=== PATIENT | female | born 1965 | race Caucasian/White ===

== ENCOUNTER 2017-03-01 14:07 | Emergency (ER) | payer SELFPAY | END 2017-03-01 14:20 | disposition left against medical advice (07) | LOC: ER 14:07 | DX: Z53.9 Procedure and treatment not carried out, unspecified reason (principal); M54.9 Dorsalgia, unspecified ==

== ENCOUNTER 2017-03-28 09:03 | Emergency (ER) | payer SELFPAY ==
[2017-03-28] MEDS ORDERED: HYDROCODONE/ACETAMINOPHEN 5-325 MG TABLET PO ONE (09:56)
--- NOTE | 2017-03-28 09:57 | ER Document Report ---
ED Medical Screen (RME) - General Chief Complaint: Vaginal Pain Stated Complaint: VAGINAL PAIN/BACK PAIN Time Seen by Provider: 03/28/17 09:55 Notes: Patient reports severe vaginal pain for the last 2-3 days. She states she is also been spotting for the first time in 2-3 years. She states intercourse been painful. She has some nausea but no vomiting. She states she also feels that her bladder "has fallen out". TRAVEL OUTSIDE OF THE [place] IN LAST 30 DAYS: No - Related Data Allergies/Adverse Reactions: gabapentin Allergy (Verified 03/28/17 09:31) Difficulty breathing ketorolac [From Toradol] Allergy (Verified 03/28/17 09:31) rash tramadol Allergy (Verified 03/28/17 09:31) Past Medical History - Social History Frequency of alcohol use: None Drug Abuse: None Renal/ Medical History: Denies: Hx Peritoneal Dialysis Physical Exam - Vital signs Vitals: Temp Pulse Resp BP Pulse Ox 97.7 F 76 18 160/97 H 96 03/28/17 09:30 03/28/17 09:30 03/28/17 09:30 03/28/17 09:30 03/28/17 09:30 Course - Vital Signs Vital signs: Temp Pulse Resp BP Pulse Ox 97.7 F 76 18 160/97 H 96 03/28/17 09:30 03/28/17 09:30 03/28/17 09:30 03/28/17 09:30 03/28/17 09:30
[2017-03-28 10:24] LABS: ABSOLUTE EOSINOPHILS # (AUTO) 0.1 10^3/uL (0.0-0.6); ABSOLUTE LYMPHOCYTES (AUTO) 1.6 10^3/uL (0.5-4.7); ABSOLUTE MONOCYTES (AUTO) 0.4 10^3/uL (0.1-1.4); ABSOLUTE NEUT (AUTO) 3.9 10^3/uL (1.7-8.2); BASOPHILS % (AUTO) 0.4 % (0-2); EOSINOPHILS % (AUTO) 2.4 % (0-6); HEMATOCRIT 43.9 % (36.0-47.0); LYMPHOCYTES % (AUTO) 25.6 % (13-45); MEAN CORPUSCULAR HEMOGLOBIN 30.4 pg (27.0-33.4); MEAN CORPUSCULAR HGB CONC 34.3 g/dL (32.0-36.0); MEAN CORPUSCULAR VOLUME 89 fl (80-97); MONOCYTES % (AUTO) 7.3 % (3-13); PLATELET COUNT 214 10^3/uL (150-450); RED BLOOD COUNT 4.95 10^6/uL (3.72-5.28); RED CELL DISTRIBUTION WIDTH 12.6 % (11.5-14.0); SEGMENTED NEUTROPHILS % (AUTO) 64.3 % (42-78); TOTAL CELLS COUNTED % (AUTO) 100 %; WHITE BLOOD COUNT 6.1 10^3/uL (4.0-10.5)
[2017-03-28 10:30] LABS: APPEARANCE,URINE CLEAR; BILIRUBIN,URINE NEGATIVE (NEGATIVE); COLOR,URINE STRAW; GLUCOSE, URINE NEGATIVE (NEGATIVE); KETONES,URINE NEGATIVE (NEGATIVE); LEUKOCYTE ESTERASE,URINE NEGATIVE (NEGATIVE); NITRITE,URINE NEGATIVE (NEGATIVE); PROTEIN,URINE NEGATIVE (NEGATIVE); URINE SPECIFIC GRAVITY 1.004; UROBILINOGEN,URINE NEGATIVE mg/dL (<2.0)
--- NOTE | 2017-03-28 10:35 | ER Document Report ---
ED General - General Chief Complaint: Vaginal Pain Stated Complaint: VAGINAL PAIN/BACK PAIN Time Seen by Provider: 03/28/17 09:55 TRAVEL OUTSIDE OF THE [place] IN LAST 30 DAYS: No - Related Data Allergies/Adverse Reactions: gabapentin Allergy (Verified 03/28/17 09:31) Difficulty breathing ketorolac [From Toradol] Allergy (Verified 03/28/17 09:31) rash tramadol Allergy (Verified 03/28/17 09:31) Past Medical History - Social History Smoking Status: Never Smoker Frequency of alcohol use: None Drug Abuse: None Family History: Reviewed & Not Pertinent Patient has suicidal ideation: No Patient has homicidal ideation: No Renal/ Medical History: Denies: Hx Peritoneal Dialysis Physical Exam - Vital signs Vitals: Temp Pulse Resp BP Pulse Ox 97.7 F 76 18 160/97 H 96 03/28/17 09:30 03/28/17 09:30 03/28/17 09:30 03/28/17 09:30 03/28/17 09:30 Course - Re-evaluation Re-evalutation: 03/28/17 12:57 Caroline female presents with vaginal pain, no discharge. Patient's extensive lab workup unremarkable, no leukocytosis or other abnormalities. Patient's transvaginal ultrasound also shows no acute findings. Patient's pelvic exam finds no obvious lesions. The patient does have appears to be a hematoma in the posterior wall of her vagina. Very tender to palpation. Patient scheduled to see her [facility] on Tuesday. This time she stable for discharge will give oral opioid therapy. Return if anything changes - Vital Signs Vital signs: Temp Pulse Resp BP Pulse Ox 97.7 F 76 18 160/97 H 96 03/28/17 09:30 03/28/17 09:30 03/28/17 09:30 03/28/17 09:30 03/28/17 09:30 - Laboratory Result Diagrams: 03/28/17 10:05 03/28/17 10:05 Laboratory results interpreted by me: 03/28/17 10:05 Calcium 10.5 H Discharge - Discharge Clinical Impression: Vaginal pain Condition: Stable Disposition: HOME, SELF-CARE Additional Instructions: See your [facility] [facility] on Tuesday, patient has a appointment already. Return if anything changes between now and then. Prescriptions: Oxycodone HCl [Oxycontin Ir 5 Mg Tablet] 1 - 2 mg PO Q4H PRN #15 tablet PRN Reason: For Pain
[2017-03-28 10:47] LABS: ALANINE AMINOTRANSFERASE 23 U/L (9-52); ALBUMIN 4.6 g/dL (3.5-5.0); ALKALINE PHOSPHATASE 76 U/L (38-126); ANION GAP 11 (5-19); ASPARTATE AMINO TRANSFERASE 17 U/L (14-36); BILIRUBIN,DIRECT 0.2 mg/dL (0.0-0.4); BILIRUBIN,TOTAL 0.4 mg/dL (0.2-1.3); BLOOD UREA NITROGEN 18 mg/dL (7-20); CALCIUM 10.5 mg/dL (8.4-10.2); CARBON DIOXIDE 27 mmol/L (22-30); CHLORIDE 104 mmol/L (98-107); GLUCOSE 100 mg/dL (75-110); POTASSIUM 4.9 mmol/L (3.6-5.0); SODIUM 141.6 mmol/L (137-145)
[2017-03-28] MEDS ORDERED: HYDROMORPHONE HCL INJ/PF 2 MG/ML AMPULE IM ONE ×2 (11:35→12:52)
--- NOTE | 2017-03-28 11:42 | RADIOLOGY REPORT (SQ) ---
EXAM DESCRIPTION: U/S NON-OB PELVIS TV W/O DOP COMPLETED DATE/TIME: 03/28/2017 11:32 am REASON FOR STUDY: severe pelvic pain COMPARISON: None. TECHNIQUE: Dynamic and static grayscale images acquired of the pelvis via transabdominal and transva ginal approach and recorded on PACS. Additional selected color Doppler and spectral images recorded. LIMITATIONS: Pelvic bowel gas, ovaries not visualized FINDINGS: UTERUS: Contour normal. No mass. Uterus is 7 x 5 x 4 cm in size. ENDOMETRIAL STRIPE: 6 to 7 mm in thickness CERVIX: Closed. Several small nabothian cysts. RIGHT OVARY: Not visualized RIGHT OVARY DOPPLER: Not performed LEFT OVARY: Not visualized LEFT OVARY DOPPLER: Not performed FREE FLUID: None noted. OTHER: No other significant finding. IMPRESSION: Ovaries not visualized either transabdominally or endovaginally. Normal size uterus without fibroids. Endometrial stripe within normal limits, patient is perimenopau lissette TECHNICAL DOCUMENTATION: JOB ID: [id number] All Rights Reserved
[2017-03-28 13:14] LABS: T.VAGINALIS (WET MOUNT) NO TRICHOMONAS SEEN; WBCS (WET MOUNT) NO WBCS SEEN; YEAST (WET MOUNT) NO YEAST SEEN
[2017-03-28 14:11] VITALS: BP 137/78
[2017-03-28 14:44] LABS: CHLAM PCR NOT DETECTED (NOT DETECT); GON PCR NOT DETECTED (NOT DETECT)
== END 2017-03-28 14:11 | disposition home or self-care (01) ==
LOC: ER 09:03
DX: R10.2 Pelvic and perineal pain (principal); Z88.6 Allergy status to analgesic agent
CPT/HCPCS: 99284; 96372; 36415; 87210; 85025; 80053; 81001; 87491; 87591; 76830; J1170

== ENCOUNTER 2017-05-15 10:40 | Emergency (ER) | payer MEDICAID ==
[2017-05-15] MEDS ORDERED: FENTANYL CITRATE INJ/PF 100 MCG/2 ML AMPUL IM ONE (11:11)
--- NOTE | 2017-05-15 11:16 | ER Document Report ---
ED Medical Screen (RME) - General Chief Complaint: Pelvic Pain Stated Complaint: PELVIC PAIN Notes: RME DISCLOSURE I have seen this patient as part of a Rapid Medical Evaluation and, if applicable, placed any initially appropriate orders. The patient will be seen and fully evaluated, including a full history and physical exam, by a provider ( in Main ED or Fast Track) when a room becomes available. 51F pmh urinary bladder prolapse here w c/o pelvic pain ongoing for past few days. She has been taking several percocets for the pain without much relief. She does not have any abd pain. She reports that "no one will do surgery on me because I have Medicaid". This feels similar to previous episodes of her bladder prolapsing which has been ongoing for the past 1-2 years. TRAVEL OUTSIDE OF THE [place] IN LAST 30 DAYS: No - Related Data Allergies/Adverse Reactions: gabapentin Allergy (Verified 03/28/17 09:31) Difficulty breathing ketorolac [From Toradol] Allergy (Verified 03/28/17 09:31) rash tramadol Allergy (Verified 03/28/17 09:31) Past Medical History Renal/ Medical History: Denies: Hx Peritoneal Dialysis Physical Exam - Vital signs Vitals: Temp Pulse Resp BP Pulse Ox 97.5 F 78 18 149/97 H 94 05/15/17 10:45 05/15/17 10:45 05/15/17 10:45 05/15/17 10:45 05/15/17 10:45 Course - Vital Signs Vital signs: Temp Pulse Resp BP Pulse Ox 97.5 F 78 18 149/97 H 94 05/15/17 10:45 05/15/17 10:45 05/15/17 10:45 05/15/17 10:45 05/15/17 10:45
--- NOTE | 2017-05-15 11:37 | ER Document Report ---
ED General - General Chief Complaint: Pelvic Pain Stated Complaint: PELVIC PAIN Time Seen by Provider: 05/15/17 11:19 Mode of Arrival: Ambulatory Information source: Patient Notes: This is a 51-year-old female with a history of a prolapsed bladder (currently followed by Dr. Atwood and referred to Dr. Lee for surgery) who presents to the emergency room with low vaginal/pelvic pain after lifting up boxes yesterday. 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 She appears in a lot of discomfort now. TRAVEL OUTSIDE OF THE [place] IN LAST 30 DAYS: No - HPI Onset: Just prior to arrival Onset/Duration: Sudden Quality of pain: No pain Severity: None Pain Level: Denies Associated symptoms: denies: Chest pain, Fever, Nausea, Vomiting, Shortness of breath Exacerbated by: Denies Relieved by: Denies Similar symptoms previously: Yes Recently seen / treated by doctor: Yes - Related Data Allergies/Adverse Reactions: gabapentin Allergy (Verified 03/28/17 09:31) Difficulty breathing ketorolac [From Toradol] Allergy (Verified 03/28/17 09:31) rash tramadol Allergy (Verified 03/28/17 09:31) Past Medical History - General Information source: Patient - Social History Smoking Status: Never Smoker Cigarette use (# per day): No Chew tobacco use (# tins/day): No Frequency of alcohol use: None Drug Abuse: None Lives with: Family Family History: Reviewed & Not Pertinent Patient has suicidal ideation: No Patient has homicidal ideation: No - Past Medical History Cardiac Medical History: Reports: None Pulmonary Medical History: Reports: None Endocrine Medical History: Reports: None Renal/ Medical History: Reports: None. Denies: Hx Peritoneal Dialysis Malignancy Medical History: Reports: None GI Medical History: Reports: None Musculoskeltal Medical History: Reports None Skin Medical History: Reports None Psychiatric Medical History: Reports: None Traumatic Medical History: Reports: None Infectious Medical History: Reports: None Past Surgical History: Reports: Hx Cholecystectomy, Hx Orthopedic Surgery - ankle, Hx Tubal Ligation Review of Systems - Review of Systems Constitutional: denies: Chills, Fever EENT: No symptoms reported Cardiovascular: No symptoms reported Respiratory: No symptoms reported Gastrointestinal: No symptoms reported Genitourinary: See HPI Female Genitourinary: See HPI Musculoskeletal: No symptoms reported Skin: No symptoms reported Hematologic/Lymphatic: No symptoms reported Neurological/Psychological: No symptoms reported Physical Exam - Vital signs Vitals: Temp Pulse Resp BP Pulse Ox 97.5 F 78 18 149/97 H 94 05/15/17 10:45 05/15/17 10:45 05/15/17 10:45 05/15/17 10:45 05/15/17 10:45 Notes: Physical exam: GENERAL: 51-year-old female, alert and oriented 3, appears uncomfortable at this time. HEAD: Atraumatic, normocephalic. EYES: Pupils equal round and reactive to light, extraocular movements intact, sclera anicteric, conjunctiva are normal. ENT: TMs normal, nares patent, oropharynx clear without exudates. Moist mucous membranes. NECK: Normal range of motion, supple without obvious mass or JVD. LUNGS: Breath sounds clear to auscultation bilaterally and equal. No wheezes rales or rhonchi. HEART: Regular rate and rhythm without murmurs, rubs or gallops. ABDOMEN: Soft, normoactive bowel sounds. No tenderness to palpation. No guarding, no rebound. No masses appreciated. Vaginal exam: Performed in the presence of a female tech: External genitalia normal, scant discharge in vault, no masses, significant pain. EXTREMITIES: Normal range of motion, no pitting or edema. No clubbing or cyanosis. NEUROLOGICAL: Cranial nerves II through XII grossly intact. Normal speech, moving all extremities. PSYCH: Normal mood, normal affect. SKIN: Warm, Dry, normal turgor, no rashes or lesions noted. Course - Vital Signs Vital signs: Temp Pulse Resp BP Pulse Ox 97.5 F 78 18 149/97 H 94 05/15/17 10:45 05/15/17 10:45 05/15/17 10:45 05/15/17 10:45 05/15/17 10:45 - Laboratory Result Diagrams: 05/15/17 11:45 05/15/17 11:45 Laboratory results interpreted by me: 05/15/17 11:45 Chloride 112 H Glucose 112 H Discharge - Discharge Clinical Impression: Pelvic pain Condition: Stable Disposition: HOME, SELF-CARE Additional Instructions: Thank you for choosing [facility] for your care. The examination and treatment you have received in the Emergency Department today has been rendered on an emergency basis only and is not intended to be a substitute for complete medical care. You should contact your doctor as it is important that she/he examine you for any new or remaining problems. If given a copy of any lab tests or radiology reports, please bring them with you when you see your physician. If your problem worsens or new symptoms appear and you are unable to arrange prompt follow-up care, return to the Emergency Department. Specific signs to look out for: Worsening pain, bleeding or any concerns or getting worse Any other instructions: Follow-up with your primary care doctor and the [facility] doctor as planned. Zofran for nausea. Take the pain medicine as needed. The pain medicine you're taking prescribed as a narcotic. There are several important things you should know about this medicine: 1. This medicine contains Tylenol: It is important that you do not take Tylenol (or acetaminophen) while on this medicine. Tylenol is metabolized by the liver and taking too much Tylenol (acetaminophen) can lay to liver damage and even liver failure. 2. Taking narcotics for too long can lead to physical and mental dependence. Take this medicine only if really needed and in the lowest quantity to achieve pain relief. 3. Do not drink alcohol while on this medicine. Alcohol interacts with narcotics and the combination can be dangerous. 4. Do not drive or operate machinery while on this medicine. 5. Narcotics do cause constipation, so drink plenty of fluids and daily stool softeners. Referrals: RODRIGUEZ CROWLEY MD [Primary Care Provider] - Follow up as needed JOHN ATWOOD MD [ACTIVE STAFF] - Follow up as needed
[2017-05-15] MEDS ORDERED: HYDROMORPHONE HCL INJ/PF 2 MG/ML AMPULE ONE (12:02)
[2017-05-15] MEDS ORDERED: ONDANSETRON HCL INJ/PF 4 MG/2 ML SDV IV ONE (12:07)
[2017-05-15] MEDS ORDERED: HYDROMORPHONE HCL INJ/PF 2 MG/ML AMPULE IV ONE (12:07)
[2017-05-15 12:08] LABS: ABSOLUTE EOSINOPHILS # (AUTO) 0.1 10^3/uL (0.0-0.6); ABSOLUTE LYMPHOCYTES (AUTO) 1.9 10^3/uL (0.5-4.7); ABSOLUTE MONOCYTES (AUTO) 0.6 10^3/uL (0.1-1.4); ABSOLUTE NEUT (AUTO) 5.3 10^3/uL (1.7-8.2); BASOPHILS % (AUTO) 0.2 % (0-2); EOSINOPHILS % (AUTO) 1.4 % (0-6); HEMOGLOBIN 13.8 g/dL (12.0-15.5); LYMPHOCYTES % (AUTO) 23.7 % (13-45); MEAN CORPUSCULAR HEMOGLOBIN 29.8 pg (27.0-33.4); MEAN CORPUSCULAR HGB CONC 33.6 g/dL (32.0-36.0); MEAN CORPUSCULAR VOLUME 89 fl (80-97); MONOCYTES % (AUTO) 7.6 % (3-13); PLATELET COUNT 195 10^3/uL (150-450); RED BLOOD COUNT 4.62 10^6/uL (3.72-5.28); RED CELL DISTRIBUTION WIDTH 13.5 % (11.5-14.0); SEGMENTED NEUTROPHILS % (AUTO) 67.1 % (42-78); TOTAL CELLS COUNTED % (AUTO) 100 %; WHITE BLOOD COUNT 7.9 10^3/uL (4.0-10.5)
[2017-05-15 12:18] LABS: ALANINE AMINOTRANSFERASE 28 U/L (9-52); ALBUMIN 3.9 g/dL (3.5-5.0); ALKALINE PHOSPHATASE 61 U/L (38-126); ANION GAP 9 (5-19); ASPARTATE AMINO TRANSFERASE 15 U/L (14-36); BILIRUBIN,DIRECT 0.3 mg/dL (0.0-0.4); BILIRUBIN,TOTAL 0.3 mg/dL (0.2-1.3); BLOOD UREA NITROGEN 19 mg/dL (7-20); CALCIUM 9.5 mg/dL (8.4-10.2); CARBON DIOXIDE 22 mmol/L (22-30); CHLORIDE 112 mmol/L (98-107); GLUCOSE 112 mg/dL (75-110); POTASSIUM 3.9 mmol/L (3.6-5.0); SODIUM 142.7 mmol/L (137-145); TOTAL PROTEIN 7.1 g/dL (6.3-8.2)
[2017-05-15 12:49] LABS: T.VAGINALIS (WET MOUNT) NO TRICHOMONAS SEEN; WBCS (WET MOUNT) RARE WBCS SEEN; YEAST (WET MOUNT) NO YEAST SEEN
[2017-05-15] MEDS ORDERED: HYDROCODONE/ACETAMINOPHEN 5-325 MG (6 TAB/ER DISP) PO PRN (13:45)
[2017-05-15] MEDS ORDERED: ONDANSETRON ODT 4 MG TAB (6 TAB/ER DISP) PO PRN (13:46)
[2017-05-15 13:59] VITALS: BP 138/80
[2017-05-15 14:19] LABS: CHLAM PCR NOT DETECTED (NOT DETECT); GON PCR NOT DETECTED (NOT DETECT)
== END 2017-05-15 13:57 | disposition home or self-care (01) ==
LOC: ER 10:40
DX: N81.10 Cystocele, unspecified (principal); R10.2 Pelvic and perineal pain; Z88.6 Allergy status to analgesic agent; Z88.8 Allergy status to other drugs, medicaments and biological substances; Z88.5 Allergy status to narcotic agent; Z90.49 Acquired absence of other specified parts of digestive tract
CPT/HCPCS: 99284; 96372; 96374; 96375; 36415; 87210; 84702; 85025; 80053; 87491; 87591; J3010; J1170; J2405

== ENCOUNTER 2017-06-12 13:42 | Emergency (ER) | payer MEDICAID ==
[2017-06-12 13:50] VITALS: BP 128/84
[2017-06-12] MEDS ORDERED: OXYCODONE-ACETAMINOPHEN 5-325 MG TABLET PO ONE (14:18)
--- NOTE | 2017-06-12 14:23 | ER Document Report ---
ED General - General Chief Complaint: Vaginal Pain Stated Complaint: VAGINAL PAIN Time Seen by Provider: 06/12/17 14:09 Notes: 51-year-old female PMH chronic uterine prolapse here with complaints of continued daily pelvic pain ongoing for the last 9 months. She states that she ran out of her oxycodone this morning and she cannot obtain another 7 day supply until tomorrow morning. She is here stating that she would like something for the pain until she can get her prescription filled tomorrow morning. She denies any other symptoms. TRAVEL OUTSIDE OF THE [place] IN LAST 30 DAYS: No - Related Data Allergies/Adverse Reactions: gabapentin Allergy (Verified 06/12/17 13:44) Difficulty breathing ketorolac [From Toradol] Allergy (Verified 06/12/17 13:44) rash tramadol Allergy (Verified 06/12/17 13:44) Past Medical History - Social History Smoking Status: Never Smoker Chew tobacco use (# tins/day): No Frequency of alcohol use: None Drug Abuse: None Family History: Reviewed & Not Pertinent Patient has suicidal ideation: No Patient has homicidal ideation: No Renal/ Medical History: Denies: Hx Peritoneal Dialysis Past Surgical History: Reports: Hx Cholecystectomy, Hx Orthopedic Surgery - ankle, Hx Tubal Ligation Review of Systems - Review of Systems Notes: See history of present illness for pertinent positive review of systems; otherwise all review of systems have been reviewed and are negative Physical Exam - Vital signs Vitals: Temp Pulse Resp BP Pulse Ox 97.8 F 95 18 128/84 H 97 06/12/17 13:50 06/12/17 13:50 06/12/17 13:50 06/12/17 13:50 06/12/17 13:50 - Notes Notes: PHYSICAL EXAMINATION: GENERAL: Well-appearing and in no acute distress. HEAD: Atraumatic, normocephalic. EYES: Pupils equal round and reactive to light, extraocular movements intact, sclera anicteric, conjunctiva are normal. ENT: nares patent, oropharynx clear without exudates. Moist mucous membranes. NECK: Normal range of motion, supple without lymphadenopathy LUNGS: CTAB and equal. No wheezes rales or rhonchi. HEART: Regular rate and rhythm without murmurs ABDOMEN: Soft, no tenderness. No facial grimacing/wincing upon palpation. No guarding, no rebound. PELVIC: Deferred due to chronic and unchanged from baseline nature EXTREMITIES: Normal range of motion, no pitting edema. No cyanosis. NEUROLOGICAL: Cranial nerves grossly intact. Normal sensory/motor exams. PSYCH: Normal mood, normal affect. SKIN: Warm, Dry, normal turgor, no rashes or lesions noted Course - Re-evaluation Re-evalutation: 06/12/17 14:25 MEDICAL DECISION MAKING: Concern for chronic uterine prolapse Discussed with the patient use of a pessary for pain relief She has never heard of a pessary she reports Will give her a dose of oxycodone here and she already has prescription for oxycodone to fill tomorrow Patient understands and agrees to the plan of care - Vital Signs Vital signs: Temp Pulse Resp BP Pulse Ox 97.8 F 95 18 128/84 H 97 06/12/17 13:50 06/12/17 13:50 06/12/17 13:50 06/12/17 13:50 06/12/17 13:50 Discharge - Discharge Clinical Impression: Chronic pain in female pelvis Condition: Good Disposition: HOME, SELF-CARE Additional Instructions: You received a one-time dose of pain medication. You were seen in the emergency department at [facility]. If you were given any sedating medications, be sure not to operate heavy machinery (example - driving ) and be sure you are not too sedated to walk appropriately. Please followup with your primary physician in the next few days for further management/ evaluation. Please return to the emergency department for worsening of symptoms or any symptom that you deem to be concerning or life-threatening. Thank you for allowing us to be part of your care.
== END 2017-06-12 14:30 | disposition home or self-care (01) ==
LOC: ER 13:42
DX: G89.29 Other chronic pain (principal); R10.2 Pelvic and perineal pain; N81.4 Uterovaginal prolapse, unspecified; Z79.891 Long term (current) use of opiate analgesic; Z88.6 Allergy status to analgesic agent; Z88.8 Allergy status to other drugs, medicaments and biological substances; Z88.5 Allergy status to narcotic agent
CPT/HCPCS: 99283

== ENCOUNTER 2017-07-24 10:20 | Emergency (ER) | payer MEDICAID ==
[2017-07-24 10:29] VITALS: BP 153/95
[2017-07-24] MEDS ORDERED: OXYCODONE-ACETAMINOPHEN 5-325 MG TABLET PO ONE (10:59)
--- NOTE | 2017-07-24 11:05 | ER Document Report ---
ED General - General Chief Complaint: Nausea Stated Complaint: NECK PAIN Time Seen by Provider: 07/24/17 10:53 Mode of Arrival: Ambulatory Information source: Patient Notes: 51-year-old female who normally takes oxycodone 11/23/2024 presents with complaints of neck pain generalized body aches nausea vomiting and shaking. Patient notes she last took her last dose yesterday believes she is withdrawn, patient notes she does not want a prescription as well as pain control here so she does not violate her pain contract that she will follow-up with the office tomorrow when it opens TRAVEL OUTSIDE OF THE [place] IN LAST 30 DAYS: No - HPI Onset: This morning Onset/Duration: Sudden Quality of pain: Achy Severity: Mild Pain Level: 1 Associated symptoms: Nausea, Vomiting Exacerbated by: Denies Relieved by: Denies Similar symptoms previously: No Recently seen / treated by doctor: No - Related Data Allergies/Adverse Reactions: gabapentin Allergy (Verified 07/24/17 10:57) Difficulty breathing ketorolac [From Toradol] Allergy (Verified 07/24/17 10:57) rash tramadol Allergy (Verified 07/24/17 10:57) Past Medical History - Social History Smoking Status: Never Smoker Cigarette use (# per day): No Chew tobacco use (# tins/day): Yes Smoking Education Provided: No Frequency of alcohol use: None Family History: Reviewed & Not Pertinent Patient has suicidal ideation: No Patient has homicidal ideation: No Renal/ Medical History: Denies: Hx Peritoneal Dialysis Past Surgical History: Reports: Hx Cholecystectomy, Hx Orthopedic Surgery - ankle, Hx Tubal Ligation Review of Systems - Review of Systems Notes: REVIEW OF SYSTEMS: CONSTITUTIONAL : Denies fever, chills, or sweats. Denies recent illness. EENT: Denies eye, ear, throat, or mouth pain or symptoms. Denies nasal or sinus congestion or discharge. Denies throat, tongue, or mouth swelling or difficulty swallowing. CARDIOVASCULAR: Denies chest pain. Denies palpitations or racing or irregular heart beat. Denies ankle edema. RESPIRATORY: Denies cough, cold, or chest congestion. Denies shortness of breath, difficulty breathing, or wheezing. GASTROINTESTINAL: Admits to nausea vomiting GENITOURINARY: Denies difficulty urinating, painful urination, burning, frequency, blood in urine, or discharge. FEMALE GENITOURINARY: Denies vaginal bleeding, heavy or abnormal periods, irregular periods. Denies vaginal discharge or odor. MUSCULOSKELETAL: Admits to chronic neck pain SKIN: Denies rash, lesions or sores. HEMATOLOGIC : Denies easy bruising or bleeding. LYMPHATIC: Denies swollen, enlarged glands. NEUROLOGICAL: Admits to tremors PSYCHIATRIC: Denies anxiety or stress. Denies depression, suicidal ideation, or homicidal ideation. ALL OTHER SYSTEMS REVIEWED AND NEGATIVE. PHYSICAL EXAMINATION: GENERAL: Well-appearing, well-nourished and in no acute distress. HEAD: Atraumatic, normocephalic. EYES: Pupils equal round and reactive to light, extraocular movements intact, conjunctiva are normal. ENT: Nares patent, oropharynx clear without exudates. Moist mucous membranes. NECK: Limited range of motion of the neck tenderness upon palpation LUNGS: Breath sounds clear to auscultation bilaterally and equal. No wheezes rales or rhonchi. HEART: Regular rate and rhythm without murmurs ABDOMEN: Soft, nontender, nondistended abdomen. No guarding, no rebound. No masses appreciated. Female : deferred Musculoskeletal: Normal range of motion, no pitting or edema. No cyanosis. NEUROLOGICAL: Cranial nerves grossly intact. Normal speech, normal gait. Normal sensory, motor exams PSYCH: Normal mood, normal affect. SKIN: Warm, Dry, normal turgor, no rashes or lesions noted. Dictation was performed using [employer] voice recognition software Physical Exam - Vital signs Vitals: Temp Pulse Resp BP Pulse Ox 97.7 F 64 18 153/95 H 96 07/24/17 10:28 07/24/17 10:28 07/24/17 10:28 07/24/17 10:28 07/24/17 10:28 Course - Re-evaluation Re-evalutation: 07/24/17 11:01 Patient's presentation is most consistent with narcotic withdrawal, and evaluation of her [place] drug database notes the last prescription was 3 months ago and that she consistently received pain medication, I am not sure why she does not have the last 3 months of her prescriptions on her records she states that her primary care physician told her to take it 6 times a day and still out of 4 times a day and that is when she ran out. I will give her a one- time dose here Patient has surgery on Tuesday with [facility] After performing a Medical Screening Examination, I estimate there is LOW risk for EXPANDING OR RUPTURED ABDOMINAL AORTIC ANEURYSM, CAUDA EQUINA SYNDROME, EPIDURAL MASS LESION, or HERNIATED DISK CAUSING SEVERE SPINAL STENOSIS, thus I consider the discharge disposition reasonable. I have reevaluated this patient multiple times and no significant life threatening changes are noted. The patient and I have discussed the diagnosis and risks, and we agree with discharging home and close follow-up. We also discussed returning to the Emergency Department immediately if new or worsening symptoms occur with the understanding that symptoms and presentations can change. We have discussed the symptoms which are most concerning (e.g., saddle anesthesia, urinary or bowel incontinence or retention, changing or worsening pain) that necessitate immediate return. - Vital Signs Vital signs: Temp Pulse Resp BP Pulse Ox 97.7 F 64 18 153/95 H 96 07/24/17 10:28 07/24/17 10:28 07/24/17 10:28 07/24/17 10:28 07/24/17 10:28 Discharge - Discharge Clinical Impression: Neck pain, Withdrawal from opioids Condition: Stable Disposition: HOME, SELF-CARE Additional Instructions: Please follow-up with your physician tomorrow for further care
== END 2017-07-24 11:09 | disposition home or self-care (01) ==
LOC: ER 10:20
DX: M54.2 Cervicalgia (principal); F11.23 Opioid dependence with withdrawal; R11.0 Nausea; Z88.6 Allergy status to analgesic agent; Z90.49 Acquired absence of other specified parts of digestive tract; Z98.51 Tubal ligation status
CPT/HCPCS: 99283

== ENCOUNTER 2017-08-01 10:56 | Emergency (ER) | payer MEDICAID ==
[2017-08-01] MEDS ORDERED: FENTANYL CITRATE INJ/PF 100 MCG/2 ML AMPUL IM ONE (11:48)
--- NOTE | 2017-08-01 11:58 | ER Document Report ---
ED Medical Screen (RME) - General Chief Complaint: Neck Swelling Stated Complaint: SHORTNESS OF BREATH Time Seen by Provider: 08/01/17 11:46 Mode of Arrival: Wheelchair Information source: Patient Notes: Pt just had surgical fusion of c cspine in three places 07/27/17 with [facility] in [place] and comes today for swelling to the neck with increased pain to the site of incision and difficulty swallowing x 1 day. Pt called ortho who told her to come to ER. She denies fever/chills, redness, drainage. She has not seen them since the surgery. TRAVEL OUTSIDE OF THE [place] IN LAST 30 DAYS: No - Related Data Allergies/Adverse Reactions: gabapentin Allergy (Verified 08/01/17 10:57) Difficulty breathing ketorolac [From Toradol] Allergy (Verified 08/01/17 10:57) rash tramadol Allergy (Verified 08/01/17 10:57) Past Medical History - General Information source: Patient Renal/ Medical History: Denies: Hx Peritoneal Dialysis Past Surgical History: Reports: Hx Cholecystectomy, Hx Orthopedic Surgery - ankle, Hx Tubal Ligation Review of Systems - Review of Systems EENT: See HPI Musculoskeletal: See HPI Skin: See HPI Physical Exam - Notes Notes: General: wimpering in pain, speaking in complete sentences w/o issues, otherwise NAD ENT: bandage on right anterior neck, no erythema obvious, airway patent
[2017-08-01 13:01] LABS: ABSOLUTE EOSINOPHILS # (AUTO) 0.2 10^3/uL (0.0-0.6); ABSOLUTE LYMPHOCYTES (AUTO) 1.9 10^3/uL (0.5-4.7); ABSOLUTE MONOCYTES (AUTO) 0.7 10^3/uL (0.1-1.4); ABSOLUTE NEUT (AUTO) 6.9 10^3/uL (1.7-8.2); BASOPHILS % (AUTO) 0.3 % (0-2); EOSINOPHILS % (AUTO) 1.8 % (0-6); HEMATOCRIT 46.4 % (36.0-47.0); HEMOGLOBIN 15.9 g/dL (12.0-15.5); LYMPHOCYTES % (AUTO) 19.9 % (13-45); MEAN CORPUSCULAR HEMOGLOBIN 30.1 pg (27.0-33.4); MEAN CORPUSCULAR HGB CONC 34.3 g/dL (32.0-36.0); MEAN CORPUSCULAR VOLUME 88 fl (80-97); PLATELET COUNT 302 10^3/uL (150-450); RED BLOOD COUNT 5.27 10^6/uL (3.72-5.28); RED CELL DISTRIBUTION WIDTH 12.9 % (11.5-14.0); TOTAL CELLS COUNTED % (AUTO) 100 %; WHITE BLOOD COUNT 9.7 10^3/uL (4.0-10.5)
[2017-08-01 13:22] LABS: ALANINE AMINOTRANSFERASE 24 U/L (9-52); ALBUMIN 4.3 g/dL (3.5-5.0); ALKALINE PHOSPHATASE 92 U/L (38-126); ANION GAP 12 (5-19); ASPARTATE AMINO TRANSFERASE 24 U/L (14-36); BILIRUBIN,DIRECT 0.4 mg/dL (0.0-0.4); BILIRUBIN,TOTAL 0.6 mg/dL (0.2-1.3); BLOOD UREA NITROGEN 14 mg/dL (7-20); CALCIUM 10.7 mg/dL (8.4-10.2); CARBON DIOXIDE 28 mmol/L (22-30); CHLORIDE 104 mmol/L (98-107); GLUCOSE 118 mg/dL (75-110); POTASSIUM 4.6 mmol/L (3.6-5.0); SODIUM 143.6 mmol/L (137-145); TOTAL PROTEIN 7.8 g/dL (6.3-8.2)
[2017-08-01] MEDS ORDERED: HYDROMORPHONE HCL INJ/PF 2 MG/ML AMPULE IV ONE (14:19)
[2017-08-01] MEDS ORDERED: NORMAL SALINE 1000 ML 500 ML IV ONE ×2 (14:20→14:21)
[2017-08-01] MEDS ORDERED: MORPHINE SULFATE 10 MG/ML INJ IV ONE ×2 (14:22→16:05)
--- NOTE | 2017-08-01 14:49 | ER Document Report ---
ED Neck/Back Problem - General Chief Complaint: Neck Swelling Stated Complaint: SHORTNESS OF BREATH Time Seen by Provider: 08/01/17 11:46 Mode of Arrival: Wheelchair Information source: Patient Notes: 51-year-old female had an anterior approach for cervical spine surgery fusion of C4-5 and 6 in [place] on July 27. She does not feel well at all. She does not have any more pain medication. Her primary care would not prescribe it. She is to be on oxycodone 10 mg 4 times a day and the surgeon decreased at the hydrocodone 5 mg a 3 day dose. He has never been an opiate withdrawal. No fever. She states her neck swelling has been that way since surgery but she is producing some mucus that sits in the back of her throat that she did not have before with discolored mucus when she coughs. She is unable to eat even pudding but she is drinking plenty of fluids. No dysuria. She states she is not short of breath but her pulse ox is 9495 without oxygen with tachypnea 24- 28 and the pulse was 106. No vomiting or diarrhea. TRAVEL OUTSIDE OF THE [place] IN LAST 30 DAYS: No - Related Data Allergies/Adverse Reactions: gabapentin Allergy (Verified 08/01/17 10:57) Difficulty breathing ketorolac [From Toradol] Allergy (Verified 08/01/17 10:57) rash tramadol Allergy (Verified 08/01/17 10:57) Past Medical History - General Information source: Patient - Social History Smoking Status: Never Smoker Frequency of alcohol use: None Drug Abuse: None Family History: Reviewed & Not Pertinent - Past Medical History Cardiac Medical History: Reports: Hx Hypertension Renal/ Medical History: Reports: Other - Uterine prolapse to the introitus Past Surgical History: Reports: Hx Cholecystectomy, Hx Orthopedic Surgery - ankle, Hx Tubal Ligation Review of Systems - Review of Systems Constitutional: See HPI EENT: See HPI Cardiovascular: No symptoms reported Respiratory: See HPI Gastrointestinal: No symptoms reported Genitourinary: No symptoms reported Female Genitourinary: No symptoms reported Musculoskeletal: No symptoms reported Skin: No symptoms reported Hematologic/Lymphatic: No symptoms reported Neurological/Psychological: No symptoms reported Physical Exam - Vital signs Vitals: Temp Pulse Resp BP Pulse Ox 98.1 F 106 H 20 150/112 H 96 08/01/17 11:03 08/01/17 11:03 08/01/17 11:03 08/01/17 11:03 08/01/17 11:03 Interpretation: Hypertensive, Tachycardic, Tachypneic - General General appearance: Alert, Anxious, Other - pale - HEENT Head: Normocephalic, Atraumatic Eyes: Normal Conjunctiva: Normal Pupils: PERRL Tympanic membrane: Normal Mucous membranes: Normal Pharynx: Normal. No: Erythema Neck: Other - right anterior neck surgical dressing in palce with tegderm, generalized soft tissue swelling neck. No: Lymphadenopathy - Respiratory Respiratory status: No respiratory distress Chest status: Nontender Breath sounds: Normal Chest palpation: Normal - Cardiovascular Rhythm: Regular Heart sounds: Normal auscultation Murmur: No - Abdominal Inspection: Normal Distension: No distension Bowel sounds: Normal Tenderness: Nontender Organomegaly: No organomegaly - Back Back: Normal, Nontender. No: CVA tenderness - Extremities General upper extremity: Normal inspection, Nontender, Normal color, Normal ROM , Normal temperature General lower extremity: Normal inspection, Nontender, Normal color, Normal ROM , Normal temperature, Normal weight bearing. No: Qing's sign - Neurological Neuro grossly intact: Yes Cognition: Normal Orientation: AAOx4 Paul Coma Scale Eye Opening: Spontaneous [place] Coma Scale Verbal: Oriented [place] Coma Scale Motor: Obeys Commands [place] Coma Scale Total: 15 Speech: Normal Motor strength normal: LUE, RUE, LLE, RLE Sensory: Normal - Psychological Associated symptoms: Normal affect, Normal mood - Skin Skin Temperature: Warm Skin Moisture: Dry Skin Color: Normal Skin irregularity: negative: Rash Course - Re-evaluation Re-evalutation: 08/01/17 14:53 Was able to suction out clear mucus in the back of her throat which relieved the rattle sound that she was feeling in hearing. 08/01/17 15:20 Radiologist Celi Morrison called and said that she has a phlegmon and prevertebral soft tissue swelling the CTA was a poor quality she stated she was going to do that again. Consult Dr. Lopes Rocephin 1 g given IV and Decadron 10 mg IV ordered. 08/01/17 15:[address] of the neck shows diffuse prevertebral soft tissue fluid/phlegmon in the postop setting which could recommend a hematoma abscess cannot be entirely excluded. There is moderate narrowing of the hypopharynx and ventral displacement of the laryngeal structures. CBC and chemistry are normal. Pulse ox is 96-97% with 2 L nasal cannula. She is asking for pain medicine. Urinalysis has been retrieved she got up and walked to the bathroom without shortness of breath. CTA is negative for PE. Called to [facility] for transfer to Dr. Brendon rivas. dr lopes signed the emtala form. pt has room assignment 426. 08/01/17 20:31 transport will be here within a few minutes. pt. sleeps on her side without the oxygen because she had been up to the bathroom and her pulse ox is 89%. After I replaced oxygen at 2 L nasal cannula her pulse ox was 94-95%. Mild hypertension which is actually better than when she came in pulse was 85-90. She is swallowing. She is stable for transport. - Vital Signs Vital signs: Temp Pulse Resp BP Pulse Ox 98.1 F 106 H 16 125/86 H 95 08/01/17 11:03 08/01/17 11:03 08/01/17 19:01 08/01/17 19:01 08/01/17 19:01 - Laboratory Result Diagrams: 08/01/17 12:27 08/01/17 12:27 Laboratory results interpreted by me: 08/01/17 08/01/17 12:27 12:27 Hgb 15.9 H Glucose 118 H Calcium 10.7 H - EKG Interpretation by Ms EKG shows normal: Sinus rhythm Rate: Tachycardia
[2017-08-01] MEDS ORDERED: DEXAMETHASONE SOD PHOS INJ 10 MG/1 ML VIAL IV ONE (15:19)
[2017-08-01] MEDS ORDERED: CEFTRIAXONE INJ 1000 MG VIAL IV ONE (15:19)
[2017-08-01] MEDS ORDERED: NORMAL SALINE 1000 ML 1,000 ML IV ONE (15:50)
--- NOTE | 2017-08-01 15:51 | RADIOLOGY REPORT (SQ) ---
EXAM DESCRIPTION: CT SOFT TISSUE NECK WITH COMPLETED DATE/TIME: 08/01/2017 3:26 pm REASON FOR STUDY: right neck pain, swelling post surgical fusion COMPARISON: CT angio chest same date TECHNIQUE: Post IV contrasted scanning from skull base through lung apices with review of bone, soft tissue and lung windows. Reconstructed coronal and sagittal MPR images reviewed. All images stored on PACS. All CT scanners at this facility use dose modulation, iterative reconstruction, and/or weight based d osing when appropriate to reduce radiation dose to as low as reasonably achievable (ALARA). [facility]: Dose Right [facility]: CareDose [facility]: Dose Right [facility]: Teradose 4D [facility]: [employer] CONTRAST TYPE AND DOSE: 60 mL IV Isovue 370- low osmolar. RENAL FUNCTION: None required. The patient is less than 50 years old. RADIATION DOSE: CT Rad equipment meets quality standard of care and radiation dose reduction techniq ues were employed. CTDIvol: 13.2 - 29.8 mGy. DLP: 1536 mGy-cm. . LIMITATIONS: None. FINDINGS: The patient is post recent cervical discectomy and fusion at C4-5 and C5-6. There is post operative soft tissue gas along the ventral aspect of the right sternocleidomastoid muscle on axial i mages 42-47. In the prevertebral space, a 5.5 cm craniocaudad by 5 cm transverse by 2 cm AP phlegmon is present with hypodense material displacing the hypopharynx and laryngeal structures ventrally. T his is from the C2 through C5 level. There is moderate narrowing of the hypopharynx, best shown on s agittal reconstruction images 22-29. This could represent postoperative hematoma. Abscess could not entirely be excluded. This finding was discussed with Annmarie Guerrero in the emergency room. SKULL BASE: Inferior brain parenchyma is unremarkable. MAJOR SALIVARY GLANDS: No solid or cystic masses. No inflammatory changes. LYMPHADENOPATHY: No adenopathy. MUCOSAL MASSES OR ASYMMETRY: No gross mucosal masses LARYNX/CORDS: Hypopharynx and laryngeal structures are displaced ventrally by prevertebral ill-define d fluid collection, hematoma versus abscess. VASCULAR STRUCTURES: The major vessels are patent. No stenosis of the carotid bifurcations identifie d. LUNG APICES: Clear. BONES: Intact. THYROID: Normal size. Soft tissue stranding along the rightward neck soft tissues/right lobe thyroid PARANASAL SINUSES: Clear. OTHER: No other significant finding. IMPRESSION: Diffuse prevertebral soft tissue fluid/phlegmon in the postoperative setting, this could represent hematoma. Abscess could not entirely be excluded. Moderate narrowing of the hypopharynx, ventral displacement of the laryngeal structures. Findings discussed with the patient's caregiver in emergency room TECHNICAL DOCUMENTATION: JOB ID: [id number] Quality ID # [id number]: Final reports with documentation of one or more dose reduction techniques (e.g., Au tomated exposure control, adjustment of the mA and/or kV according to patient size, use of iterative reconstruction technique) 2010 [employer]- All Rights Reserved Reading location - IP/workstation name: [email or web address]
--- NOTE | 2017-08-01 15:59 | RADIOLOGY REPORT (SQ) ---
EXAM DESCRIPTION: CTA CHEST COMPLETED DATE/TIME: 08/01/2017 3:26 pm REASON FOR STUDY: tachypnea tachycardic recent surgery COMPARISON: None. TECHNIQUE: CT scan of the chest performed using helical scanning technique with dynamic intravenous contrast injection. Images reviewed with lung, soft tissue and bone windows. Reconstructed coronal and sagittal MPR images reviewed. Additional 3 dimensional post-processing performed to develop Maximal Intensity Projection images (NC P). All images stored on PACS. All CT scanners at this facility use dose modulation, iterative reconstruction, and/or weight based d osing when appropriate to reduce radiation dose to as low as reasonably achievable (ALARA). [facility]: Dose Right [facility]: CareDose [facility]: Dose Right [facility]: Teradose 4D [facility]: [employer] CONTRAST TYPE AND DOSE: contrast/concentration: Isovue 370.00 mg/ml; Total Contrast Delivered: 135.0 ml; Total Saline Delivered: 135.5 ml Contrast bolus optimized for the pulmonary arteries. Not diagnostic for the aorta. RENAL FUNCTION: Creatinine -0.76 RADIATION DOSE: CT Rad equipment meets quality standard of care and radiation dose reduction techniq ues were employed. CTDIvol: 13.2 - 29.8 mGy. DLP: 1000 mGy-cm. . LIMITATIONS: None. FINDINGS: LUNGS AND PLEURA: Motion artifact in the lungs limits the examination somewhat. No acute pulmonary consolidation. No pneumothorax or pleural effusion. The central airways are clear. AORTA AND GREAT VESSELS: The right brachiocephalic artery and left common carotid artery share a com mon origin off of the aortic arch, normal anatomic variant. Great vessel origin off of the aortic ar ch, patent. No aneurysm.Contrast bolus not optimized for the aorta. HEART: The No pericardial effusion. No significant coronary artery calcifications. PULMONARY ARTERIES: No emboli visualized in the main pulmonary arteries or the segmental branches. HILAR AND MEDIASTINAL STRUCTURES: No identified masses or abnormal nodes. HARDWARE: None in the chest. UPPER ABDOMEN: No significant findings. Limited exam. THYROID AND OTHER SOFT TISSUES: Please see CT neck report. BONES: No acute or significant finding. 3D MIPS: Confirm above findings. OTHER: Hardware anterior fusion lower cervical spine. Small hiatal hernia. IMPRESSION: 1 No evidence for acute pulmonary emboli. 2. Motion artifact limits examination of the lung somewhat. No acute pulmonary consolidation. COMMENT: Quality ID # 436: Final reports with documentation of one or more dose reduction techniques (e.g., Automated exposure control, adjustment of the mA and/or kV according to patient size, use of iterative reconstruction technique) TECHNICAL DOCUMENTATION: JOB ID: [id number] [employer]- All Rights Reserved Reading location - IP/workstation name: [email or web address]
[2017-08-01 16:13] LABS: INTERNATIONAL RATION (INR) 0.85; PROTHROMBIN TIME 12.1 SEC (11.4-15.4)
[2017-08-01 16:14] LABS: PARTIAL THROMBOPLASTIN TIME 31.1 SEC (23.5-35.8)
[2017-08-01 16:15] LABS: APPEARANCE,URINE CLEAR; BILIRUBIN,URINE NEGATIVE (NEGATIVE); COLOR,URINE YELLOW; GLUCOSE, URINE NEGATIVE (NEGATIVE); KETONES,URINE NEGATIVE (NEGATIVE); LEUKOCYTE ESTERASE,URINE NEGATIVE (NEGATIVE); NITRITE,URINE NEGATIVE (NEGATIVE); PROTEIN,URINE NEGATIVE (NEGATIVE); URINE SPECIFIC GRAVITY 1.057; UROBILINOGEN,URINE NEGATIVE mg/dL (<2.0)
[2017-08-01] MEDS ORDERED: FENTANYL CITRATE INJ/PF 100 MCG/2 ML AMPUL IV ONE ×2 (17:27→19:17)
[2017-08-01] MEDS ORDERED: ONDANSETRON HCL INJ/PF 4 MG/2 ML SDV IV ONE (19:17)
[2017-08-01] MEDS ORDERED: HYDROMORPHONE HCL 2 MG TABLET PO ONE (19:20)
[2017-08-01] MEDS ORDERED: METOCLOPRAMIDE HCL INJ/PF 10 MG/2 ML SDV IV ONE (19:25)
[2017-08-01 20:33] VITALS: BP 150/98
--- NOTE | 2017-08-02 07:42 | EKG REPORT ---
SEVERITY:- BORDERLINE ECG - SINUS RHYTHM BORDERLINE LEFT AXIS DEVIATION BORDERLINE T WAVE ABNORMALITIES : Confirmed by: Shai Arthur MD 02-Aug-2017 07:42:37
== END 2017-08-01 20:36 | disposition short-term general hospital (02) ==
LOC: ER 10:56
DX: R22.1 Localized swelling, mass and lump, neck (principal); R06.02 Shortness of breath; Z79.899 Other long term (current) drug therapy; Z98.890 Other specified postprocedural states; I10 Essential (primary) hypertension
CPT/HCPCS: 93005; 99285; 96372; 96361; 96375; 96365; 36415; 87040; 85025; 85610; 85730; 80053; 81001; 70491; 71275; 93010; J3010; J3490; J2765; J2270; J0696; J7030; J1100

== ENCOUNTER 2017-08-18 10:09 | Emergency (ER) | payer MEDICAID ==
[2017-08-18] MEDS ORDERED: FENTANYL CITRATE INJ/PF 100 MCG/2 ML AMPUL IV ONE (11:15)
[2017-08-18] MEDS ORDERED: ONDANSETRON 4 MG TAB.RAPDIS PO ONE (11:15)
--- NOTE | 2017-08-18 11:17 | ER Document Report ---
ED Medical Screen (RME) - General Chief Complaint: Nausea/Vomiting/Diarrhea Stated Complaint: VOMITING Time Seen by Provider: 08/18/17 11:08 Notes: RAPID MEDICAL EVALUATION DISCLOSURE I have seen this patient as part of a Rapid Medical Evaluation and, if applicable, placed any initially appropriate orders. The patient will be seen and fully evaluated, including a full history and physical exam, by a provider ( in Main ED or Fast Track) when a room becomes available. 51-year-old female status post recent surgery on 07/27/2017 for cervical discectomy in [place], then neck hematoma formation 08/02/2017 status post evacuation in [place], back here with complaints of difficulty swallowing ongoing since the surgery on 07/27/2017. She states that she is able to swallow liquids and soft foods such as applesauce and yogurt however is unable to swallow any solid foods because it feels like it is getting stuck in her throat. She has also had nausea and softer than usual stools but not watery. She has a follow-up appointment with the ENT physician in the near future about the swallowing issues. EXAM No carotid bruits auscultated Normal carotid pulses No significantly appreciable neck swelling Halitosis TRAVEL OUTSIDE OF THE [place].S. IN LAST 30 DAYS: No - Related Data Allergies/Adverse Reactions: gabapentin Allergy (Verified 08/18/17 10:12) Difficulty breathing ketorolac [From Toradol] Allergy (Verified 08/18/17 10:12) rash tramadol Allergy (Verified 08/18/17 10:12) Past Medical History - Social History Chew tobacco use (# tins/day): No Frequency of alcohol use: None Drug Abuse: None - Past Medical History Cardiac Medical History: Reports: Hx Hypertension Renal/ Medical History: Denies: Hx Peritoneal Dialysis Past Surgical History: Reports: Hx Cholecystectomy, Hx Orthopedic Surgery - ankle, Hx Tubal Ligation Physical Exam - Vital signs Vitals: Temp Pulse Resp BP Pulse Ox 98.0 F 79 16 150/95 H 97 08/18/17 10:16 08/18/17 10:16 08/18/17 10:16 08/18/17 10:16 08/18/17 10:16 Course - Vital Signs Vital signs: Temp Pulse Resp BP Pulse Ox 98.0 F 79 16 150/95 H 97 08/18/17 10:16 08/18/17 10:16 08/18/17 10:16 08/18/17 10:16 08/18/17 10:16
[2017-08-18 12:03] LABS: ABSOLUTE LYMPHOCYTES (AUTO) 1.3 10^3/uL (0.5-4.7); ABSOLUTE MONOCYTES (AUTO) 0.4 10^3/uL (0.1-1.4); ABSOLUTE NEUT (AUTO) 5.9 10^3/uL (1.7-8.2); BASOPHILS % (AUTO) 0.3 % (0-2); EOSINOPHILS % (AUTO) 0.5 % (0-6); HEMATOCRIT 43.1 % (36.0-47.0); HEMOGLOBIN 14.5 g/dL (12.0-15.5); LYMPHOCYTES % (AUTO) 17.2 % (13-45); MEAN CORPUSCULAR HEMOGLOBIN 29.8 pg (27.0-33.4); MEAN CORPUSCULAR HGB CONC 33.6 g/dL (32.0-36.0); MEAN CORPUSCULAR VOLUME 89 fl (80-97); MONOCYTES % (AUTO) 5.4 % (3-13); PLATELET COUNT 253 10^3/uL (150-450); RED BLOOD COUNT 4.87 10^6/uL (3.72-5.28); RED CELL DISTRIBUTION WIDTH 13.4 % (11.5-14.0); SEGMENTED NEUTROPHILS % (AUTO) 76.6 % (42-78); TOTAL CELLS COUNTED % (AUTO) 100 %; WHITE BLOOD COUNT 7.6 10^3/uL (4.0-10.5)
[2017-08-18 12:26] LABS: ALANINE AMINOTRANSFERASE 47 U/L (9-52); ALBUMIN 4.4 g/dL (3.5-5.0); ALKALINE PHOSPHATASE 86 U/L (38-126); ANION GAP 12 (5-19); ASPARTATE AMINO TRANSFERASE 40 U/L (14-36); BILIRUBIN,DIRECT 0.5 mg/dL (0.0-0.4); BILIRUBIN,TOTAL 0.6 mg/dL (0.2-1.3); BLOOD UREA NITROGEN 12 mg/dL (7-20); CALCIUM 10.1 mg/dL (8.4-10.2); CARBON DIOXIDE 25 mmol/L (22-30); CHLORIDE 109 mmol/L (98-107); GLUCOSE 105 mg/dL (75-110); POTASSIUM 4.6 mmol/L (3.6-5.0); SODIUM 145.9 mmol/L (137-145); TOTAL PROTEIN 7.8 g/dL (6.3-8.2)
--- NOTE | 2017-08-18 13:56 | RADIOLOGY REPORT (SQ) ---
EXAM DESCRIPTION: CT SOFT TISSUE NECK WITH COMPLETED DATE/TIME: 08/18/2017 12:00 pm REASON FOR STUDY: rct neck hematoma s/p surg; evvinny ibarra same COMPARISON: 08/01/2017. TECHNIQUE: Post IV contrasted scanning from skull base through lung apices with review of bone, soft tissue and lung windows. Reconstructed coronal and sagittal MPR images reviewed. All images stored on PACS. All CT scanners at this facility use dose modulation, iterative reconstruction, and/or weight based d osing when appropriate to reduce radiation dose to as low as reasonably achievable (ALARA). [facility]: Dose Right [facility]: CareDose [facility]: Dose Right [facility]: Teradose 4D [facility]: [employer] CONTRAST TYPE AND DOSE: contrast/concentration: Isovue 370.00 mg/ml; Total Contrast Delivered: 75.0 ml; Total Saline Delivered: 55.0 ml RENAL FUNCTION: BUN 14 creatinine 0.76. RADIATION DOSE: CT Rad equipment meets quality standard of care and radiation dose reduction techniq ues were employed. CTDIvol: 16.1 mGy. DLP: 466 mGy-cm. . LIMITATIONS: None. FINDINGS: SKULL BASE: Intact. MAJOR SALIVARY GLANDS: No solid or cystic masses. No inflammatory changes. LYMPHADENOPATHY: No adenopathy. MUCOSAL MASSES OR ASYMMETRY: Significant decrease in the previously seen prevertebral soft tissue swe lling which has now resolved. Currently no abnormal fluid or gas in the soft tissues. Mild asymmetr ic fullness in the right tonsillar region could be artifact due to slight angulation of the head to t he right. LARYNX/CORDS: No abnormal findings. VASCULAR STRUCTURES: The major vessels are patent. LUNG APICES: Clear. BONES: Intact. THYROID: Normal size. No masses. PARANASAL SINUSES: Clear. OTHER: No other significant finding. IMPRESSION: 1. SURGICAL CHANGES OF PREVIOUS CERVICAL FUSION. PREVIOUSLY SEEN PREVERTEBRAL SOFT TISSUE EDEMA/NICOLE MAT HAS RESOLVED. CURRENTLY NO ABNORMAL FULLNESS IN THE SOFT TISSUES AND NO SOFT TISSUE FLUID COLLE CTION OR GAS. 2. MILD ASYMMETRIC FULLNESS OF THE RIGHT PHARYNGEAL TONSIL REGION WITH NO DISCRETE MASS. THIS APPEAR S AT LEAST PARTLY DUE TO ARTIFACT FROM SLIGHT ANGULATION OF THE HEAD TO THE RIGHT. NO EVIDENCE OF AB SCESS OR OTHER SIGNIFICANT FINDING. TECHNICAL DOCUMENTATION: JOB ID: [id number] Quality ID # [id number]: Final reports with documentation of one or more dose reduction techniques (e.g., Au tomated exposure control, adjustment of the mA and/or kV according to patient size, use of iterative reconstruction technique) 2010 [employer]- All Rights Reserved Reading location - IP/workstation name: [email or web address]
[2017-08-18 14:43] VITALS: BP 153/89
--- NOTE | 2017-08-18 14:47 | ER Document Report ---
ED General - General Chief Complaint: Nausea/Vomiting/Diarrhea Stated Complaint: VOMITING Time Seen by Provider: 08/18/17 11:08 Mode of Arrival: Ambulatory Information source: Patient Notes: 51-year-old female status post cervical discectomy on 07/27/17 done in [place] presents emergency department with complaints of difficulty swallowing since surgery. She was seen on 08/02/17 and diagnosed with a neck hematoma. Patient was transferred back to [place]. Patient's orthopedic surgeon performed a second surgery on her. Patient states that she still unable to swallow. Patient states that she is able to swallow soft foods such as applesauce, yogurt , pudding and liquids. Patient states that it still feels like there is something stuck in her throat. Patient states that her orthopedic surgeon referred her to an ENT but she's unable to see the ENT until next week. TRAVEL OUTSIDE OF THE [place] IN LAST 30 DAYS: No - HPI Onset: Other - since 07/27/17 Severity: Mild Associated symptoms: None Exacerbated by: Denies Relieved by: Denies Similar symptoms previously: No Recently seen / treated by doctor: Yes - Related Data Allergies/Adverse Reactions: gabapentin Allergy (Verified 08/18/17 10:12) Difficulty breathing ketorolac [From Toradol] Allergy (Verified 08/18/17 10:12) rash tramadol Allergy (Verified 08/18/17 10:12) Past Medical History - Social History Smoking Status: Never Smoker Chew tobacco use (# tins/day): No Frequency of alcohol use: None Drug Abuse: None Family History: Reviewed & Not Pertinent Patient has suicidal ideation: No Patient has homicidal ideation: No - Past Medical History Cardiac Medical History: Reports: Hx Hypertension Renal/ Medical History: Denies: Hx Peritoneal Dialysis Past Surgical History: Reports: Hx Cholecystectomy, Hx Orthopedic Surgery - ankle, Hx Tubal Ligation Review of Systems - Review of Systems Constitutional: No symptoms reported EENT: No symptoms reported, Difficulty swallowing Cardiovascular: No symptoms reported Respiratory: No symptoms reported Gastrointestinal: Diarrhea, Nausea Genitourinary: No symptoms reported Female Genitourinary: No symptoms reported Musculoskeletal: No symptoms reported Skin: No symptoms reported Neurological/Psychological: No symptoms reported -: Yes All other systems reviewed and negative Physical Exam - Vital signs Vitals: Temp Pulse Resp BP Pulse Ox 98.0 F 79 16 150/95 H 97 08/18/17 10:16 06/28/18 10:16 08/18/17 10:16 08/18/17 10:16 08/18/17 10:16 Interpretation: Normal - Notes Notes: PHYSICAL EXAMINATION: GENERAL: Well-appearing, well-nourished and in no acute distress. HEAD: Atraumatic, normocephalic. EYES: Pupils equal round and reactive to light, extraocular movements intact, conjunctiva are normal. ENT: Nares patent, oropharynx clear without exudates. Moist mucous membranes. NECK: Normal range of motion, supple without lymphadenopathy. surgical incision is clean, dry, intact with no signs of infection. No carotid bruits. No neck swelling. LUNGS: Breath sounds clear to auscultation bilaterally and equal. No wheezes rales or rhonchi. HEART: Regular rate and rhythm without murmurs ABDOMEN: Soft, nontender, nondistended abdomen. No guarding, no rebound. No masses appreciated. Female : deferred Musculoskeletal: Normal range of motion, no pitting or edema. No cyanosis. NEUROLOGICAL: Cranial nerves grossly intact. Normal speech, normal gait. Normal sensory, motor exams PSYCH: Normal mood, normal affect. SKIN: Warm, Dry, normal turgor, no rashes or lesions noted. Course - Re-evaluation Re-evalutation: 08/18/17 14:45 Ct of the neck done. Previous hematoma and soft tissue swelling has resolved. There is a fullness to the right pharyngeal tonsil. No masses appreciated. Radiologist believes this is likely artifact. Patient is able to consume soft foods and fluids. I contacted our ENT business continuity director, Dr. Fields as the patient has not followed up with ENT yet. He feels that since the patient has appropriate follow up with ENT in [place] for next week, she should keep that appointment. I asked the patient who she is seeing next week. Patient does not know the ENT's name. Patient requesting oxycodone for her continued neck pain. I told her to contact her orthopedic surgeon regarding pain medication and to contact her ENT to see if she can get her appointment changed to a sooner date. Patient is agreeable with the plan of care. 08/18/17 14:47 08/18/17 14:51 - Vital Signs Vital signs: Temp Pulse Resp BP Pulse Ox 98.4 F 76 18 153/89 H 97 08/18/17 14:42 08/18/17 14:42 08/18/17 14:42 08/18/17 14:42 08/18/17 14:42 - Laboratory Result Diagrams: 08/18/17 11:40 08/18/17 11:40 Laboratory results interpreted by me: 08/18/17 11:40 Sodium 145.9 H Chloride 109 H Direct Bilirubin 0.5 H AST 40 H Discharge - Discharge Clinical Impression: Difficulty swallowing Qualifiers: Dysphagia type: unspecified Qualified Code(s): R13.10 - Dysphagia, unspecified Condition: Good Disposition: HOME, SELF-CARE Instructions: Dysphagia ([facility]) Prescriptions: Ondansetron [Zofran Odt 4 mg Tablet] 1 - 2 tab PO Q4H PRN #15 tab.rapdis PRN Reason: For Nausea/Vomiting Referrals: ROBERT BRADSHAW MD [COMMUNITY BASED STAFF] - Follow up as needed
== END 2017-08-18 14:50 | disposition home or self-care (01) ==
LOC: ER 10:09
DX: R13.10 Dysphagia, unspecified (principal); R09.89 Other specified symptoms and signs involving the circulatory and respiratory systems; R11.2 Nausea with vomiting, unspecified; R19.7 Diarrhea, unspecified; M54.2 Cervicalgia; I10 Essential (primary) hypertension; Z98.890 Other specified postprocedural states; Z88.6 Allergy status to analgesic agent; Z88.8 Allergy status to other drugs, medicaments and biological substances; Z88.5 Allergy status to narcotic agent
CPT/HCPCS: 99284; 96374; 36415; 87040; 85025; 80053; 70491; S0119; J3010

== ENCOUNTER 2017-08-30 10:59 | Emergency (ER) | payer MEDICAID ==
[2017-08-30] MEDS ORDERED: OXYCODONE-ACETAMINOPHEN 5-325 MG TABLET PO ONE (12:09)
--- NOTE | 2017-08-30 12:11 | ER Document Report ---
ED Medical Screen (RME) - General Chief Complaint: Vaginal Pain Stated Complaint: ABDOMINAL PAIN Time Seen by Provider: 08/30/17 11:45 Notes: Patient is a 51-year-old female, past medical history chronic uterine prolapse, presents with worsening vaginal pain and no leaking of urine. 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 PE: Uncomfortable. Shuffling while walking. Pelvic exam deferred in RME. I have greeted and performed a rapid initial assessment of this patient. A comprehensive ED assessment and evaluation of the patient, analysis of test results and completion of the medical decision making process will be conducted by additional ED providers. TRAVEL OUTSIDE OF THE [place] IN LAST 30 DAYS: No - Related Data Allergies/Adverse Reactions: gabapentin Allergy (Verified 08/18/17 10:12) Difficulty breathing ketorolac [From Toradol] Allergy (Verified 08/18/17 10:12) rash tramadol Allergy (Verified 08/18/17 10:12) Home Medications: lisinopril Past Medical History - Social History Chew tobacco use (# tins/day): No Frequency of alcohol use: None Drug Abuse: Marijuana - Past Medical History Cardiac Medical History: Reports: Hx Hypertension Renal/ Medical History: Denies: Hx Peritoneal Dialysis Past Surgical History: Reports: Hx Cholecystectomy, Hx Orthopedic Surgery - ankle, Hx Tubal Ligation Physical Exam - Vital signs Vitals: Temp Pulse Resp BP Pulse Ox 97.9 F 74 18 155/100 H 96 08/30/17 11:22 08/30/17 11:22 08/30/17 11:22 08/30/17 11:22 08/30/17 11:22 Course - Vital Signs Vital signs: Temp Pulse Resp BP Pulse Ox 97.9 F 74 18 155/100 H 96 08/30/17 11:22 08/30/17 11:22 08/30/17 11:22 08/30/17 11:22 08/30/17 11:22 Doctor's Discharge - Discharge Referrals: RAJEEV VELASQUEZ PA [Primary Care Provider] - Follow up as needed
[2017-08-30 12:59] LABS: APPEARANCE,URINE CLEAR; BILIRUBIN,URINE NEGATIVE (NEGATIVE); COLOR,URINE YELLOW; GLUCOSE, URINE NEGATIVE (NEGATIVE); KETONES,URINE NEGATIVE (NEGATIVE); LEUKOCYTE ESTERASE,URINE SMALL (NEGATIVE); NITRITE,URINE NEGATIVE (NEGATIVE); PROTEIN,URINE NEGATIVE (NEGATIVE); URINE SPECIFIC GRAVITY 1.015; UROBILINOGEN,URINE NEGATIVE mg/dL (<2.0)
--- NOTE | 2017-08-30 13:34 | ER Document Report ---
ED General - General Chief Complaint: Vaginal Pain Stated Complaint: ABDOMINAL PAIN Time Seen by Provider: 08/30/17 11:45 Mode of Arrival: Ambulatory Information source: Patient Notes: 51-year-old female history of prolapsed uterus and bladder presents with complaints of pain. Patient is due to insurance issues TRAVEL OUTSIDE OF THE [place] IN LAST 30 DAYS: No - HPI Onset: Other Onset/Duration: Persistent Quality of pain: Sharp Severity: Mild Pain Level: 1 Associated symptoms: Other Exacerbated by: Other - Worsen with urination - Related Data Allergies/Adverse Reactions: gabapentin Allergy (Verified 08/18/17 10:12) Difficulty breathing ketorolac [From Toradol] Allergy (Verified 08/18/17 10:12) rash tramadol Allergy (Verified 08/18/17 10:12) Home Medications: lisinopril Past Medical History - Social History Smoking Status: Never Smoker Cigarette use (# per day): No Chew tobacco use (# tins/day): No Smoking Education Provided: No Frequency of alcohol use: None Drug Abuse: Marijuana Family History: Reviewed & Not Pertinent Patient has suicidal ideation: No Patient has homicidal ideation: No - Past Medical History Cardiac Medical History: Reports: Hx Hypertension Renal/ Medical History: Denies: Hx Peritoneal Dialysis Past Surgical History: Reports: Hx Cholecystectomy, Hx Orthopedic Surgery - ankle, back and cervical surgery, Hx Tubal Ligation Review of Systems - Review of Systems Notes: REVIEW OF SYSTEMS: CONSTITUTIONAL : Denies fever, chills, or sweats. Denies recent illness. EENT: Denies eye, ear, throat, or mouth pain or symptoms. Denies nasal or sinus congestion or discharge. Denies throat, tongue, or mouth swelling or difficulty swallowing. CARDIOVASCULAR: Denies chest pain. Denies palpitations or racing or irregular heart beat. Denies ankle edema. RESPIRATORY: Denies cough, cold, or chest congestion. Denies shortness of breath, difficulty breathing, or wheezing. GASTROINTESTINAL: Denies abdominal pain or distention. Denies nausea, vomiting , or diarrhea. Denies blood in vomitus, stools, or per rectum. Denies black, tarry stools. Denies constipation. GENITOURINARY: Admits to burning on urination flank pain FEMALE GENITOURINARY: Denies vaginal bleeding, heavy or abnormal periods, irregular periods. Denies vaginal discharge or odor. MUSCULOSKELETAL: Denies back or neck pain or stiffness. Denies joint pain or swelling. SKIN: Denies rash, lesions or sores. HEMATOLOGIC : Denies easy bruising or bleeding. LYMPHATIC: Denies swollen, enlarged glands. NEUROLOGICAL: Denies confusion or altered mental status. Denies passing out or loss of consciousness. Denies dizziness or lightheadedness. Denies headache. Denies weakness or paralysis or loss of use of either side. Denies problems with gait or speech. Denies sensory loss, numbness, or tingling. Denies seizures. PSYCHIATRIC: Denies anxiety or stress. Denies depression, suicidal ideation, or homicidal ideation. ALL OTHER SYSTEMS REVIEWED AND NEGATIVE. PHYSICAL EXAMINATION: GENERAL: Well-appearing, well-nourished and in no acute distress. HEAD: Atraumatic, normocephalic. EYES: Pupils equal round and reactive to light, extraocular movements intact, conjunctiva are normal. ENT: Nares patent, oropharynx clear without exudates. Moist mucous membranes. NECK: Normal range of motion, supple without lymphadenopathy LUNGS: Breath sounds clear to auscultation bilaterally and equal. No wheezes rales or rhonchi. HEART: Regular rate and rhythm without murmurs ABDOMEN: Soft, nontender, nondistended abdomen. No guarding, no rebound. No masses appreciated. Female : Prolapsed uterus noted Musculoskeletal: Normal range of motion, no pitting or edema. No cyanosis. NEUROLOGICAL: Cranial nerves grossly intact. Normal speech, normal gait. Normal sensory, motor exams PSYCH: Normal mood, normal affect. SKIN: Warm, Dry, normal turgor, no rashes or lesions noted. Dictation was performed using [employer] voice recognition software Physical Exam - Vital signs Vitals: Temp Pulse Resp BP Pulse Ox 97.9 F 74 18 155/100 H 96 08/30/17 11:22 08/30/17 11:22 08/30/17 11:22 08/30/17 11:22 08/30/17 11:22 Course - Re-evaluation Re-evalutation: 08/30/17 14:11 Patient has been given social problems specialist consult so they can assist with referral process, otherwise she does have small amount of white blood cells in the urine she appears stable otherwise Patient will be given follow-up and close return precautions After performing a Medical Screening Examination, I estimate there is LOW risk for ACUTE APPENDICITIS, BOWEL OBSTRUCTION, ACUTE CHOLECYSTITIS, PERFORATED DIVERTICULITIS, INCARCERATED HERNIA, PANCREATITIS, PELVIC INFLAMMATORY DISEASE, PERFORATED ULCER, ECTOPIC , or TUBO-OVARIAN ABSCESS, thus I consider the discharge disposition reasonable. Also, there is no evidence or peritonitis , sepsis, or toxicity. I have reevaluated this patient multiple times and no significant life threatening changes are noted. The patient and I have discussed the diagnosis and risks, and we agree with discharging home with close follow-up with the understanding that symptoms and presentations can change. We also discussed returning to the Emergency Department immediately if new or worsening symptoms occur. We have discussed the symptoms which are most concerning (e.g., bloody stool, fever, changing or worsening pain, vomiting) that necessitate immediate return. - Vital Signs Vital signs: Temp Pulse Resp BP Pulse Ox 97.9 F 73 16 148/92 H 97 08/30/17 13:49 08/30/17 13:49 08/30/17 13:49 08/30/17 13:49 08/30/17 13:49 - Laboratory Laboratory results interpreted by me: 08/30/17 11:23 Ur Leukocyte Esterase SMALL H Discharge - Discharge Clinical Impression: Prolapsed uterus UTI (urinary tract infection) Qualifiers: Urinary tract infection type: acute cystitis Hematuria presence: without hematuria Qualified Code(s): N30.00 - Acute cystitis without hematuria Condition: Stable Disposition: HOME, SELF-CARE Instructions: Urinary Tract Infection ([facility]) Prescriptions: Cephalexin Monohydrate [Keflex 500 mg Capsule] 500 mg PO BID 5 Days capsule Oxycodone HCl/Acetaminophen [Percocet 5-325 mg Tablet] 1 - 2 tab PO Q4H PRN #25 tablet PRN Reason: Oxycodone HCl/Acetaminophen [Percocet 5-325 mg Tablet] 1 - 2 tab PO Q4H PRN #25 tablet PRN Reason: Referrals: RAJEEV VELASQUEZ PA [Primary Care Provider] - Follow up as needed
[2017-08-30 13:51] VITALS: BP 148/92
== END 2017-08-30 13:51 | disposition home or self-care (01) ==
LOC: ER 10:59
DX: N30.00 Acute cystitis without hematuria (principal); N81.4 Uterovaginal prolapse, unspecified; I10 Essential (primary) hypertension; Z88.6 Allergy status to analgesic agent; Z88.5 Allergy status to narcotic agent
CPT/HCPCS: 81001; 99283

== ENCOUNTER 2017-09-21 18:15 | Emergency (ER) | payer MEDICAID ==
[2017-09-21 18:28] VITALS: BP 141/85
--- NOTE | 2017-09-21 20:12 | ER Document Report ---
HPI - HPI Patient complains to provider of: Pruritic rash Onset: Other - 3 days Onset/Duration: Gradual, Persistent Pain Level: 4 Context: 51-year-old female complaining of stinging itchy rash on her trunk at the base of her neck. She also has chronic itching to her right dorsal forearm that scabs at times. No fever, no tick bite. Associated Symptoms: None Exacerbated by: Denies Relieved by: Denies Similar symptoms previously: No Recently seen / treated by doctor: No - ROS ROS below otherwise negative: Yes Systems Reviewed and Negative: Yes All other systems reviewed and negative Past Medical History - General Information source: Patient - Social History Smoking Status: Never Smoker Chew tobacco use (# tins/day): No Frequency of alcohol use: None Drug Abuse: None Lives with: Family Family History: Reviewed & Not Pertinent Patient has suicidal ideation: No Patient has homicidal ideation: No - Past Medical History Cardiac Medical History: Reports: Hx Hypertension Renal/ Medical History: Denies: Hx Peritoneal Dialysis Past Surgical History: Reports: Hx Cholecystectomy, Hx Orthopedic Surgery - ankle, back and cervical surgery, Hx Tubal Ligation Vertical Provider Document - CONSTITUTIONAL Agree With Documented VS: Yes Exam Limitations: No Limitations - INFECTION CONTROL TRAVEL OUTSIDE OF THE [place] IN LAST 30 DAYS: No - HEENT HEENT: Normocephalic. negative: Conjuctival Injection, Pharyngeal Erythema - NECK Neck: Supple. negative: Lymphadenopathy-Left, Lymphadenopathy-Right - RESPIRATORY Respiratory: Breath Sounds Normal, No Respiratory Distress - CARDIOVASCULAR Cardiovascular: Regular Rate, Regular Rhythm - GI/ABDOMEN Gastrointestinal: Abdomen Soft - MUSCULOSKELETAL/EXTREMETIES Musculoskeletal/Extremeties: JORDYN GAMEZ - NEURO Level of Consciousness: Alert - DERM Integumentary: Rash - 2 different kinds of rashes, both dorsal forearms have hyperkeratotic skin changes due to sun and age, the lesions on her right forearm she has scratched so they are D removed but there is no signs of impetigo or infection. The other rash is a macular pink blanchable generalized rash to her trunk including her scalp and there is a linear area on the base of her neck that she states is painful into the base of her neck. Course - Vital Signs Vital signs: Temp Pulse Resp BP Pulse Ox 98.2 F 81 14 141/85 H 96 09/21/17 18:26 09/21/17 18:26 09/21/17 18:26 09/21/17 18:26 09/21/17 18:26 Discharge - Discharge Clinical Impression: Viral rash, bilateral forearm keritotic lesions, chronic scratching forearms Condition: Good Disposition: HOME, SELF-CARE Instructions: Itching, Nonspecific ([facility]), Viral Rash ([facility]) Additional Instructions: Benadryl 50 mg every 4-6 hours for itching Stop the Neosporin on the right forearm Use Aquaphor ointment to the forearms See the real estate agency principal for these chronic lesions on your sun exposed forearms Referrals: BELLA ABRAHAM DO [ACTIVE STAFF] - Follow up tomorrow
[2017-09-21] MEDS ORDERED: ACETAMINOPHEN 325 MG TABLET PO ONE (20:17)
[2017-09-21] MEDS ORDERED: DIPHENHYDRAMINE HCL 50 MG CAPSULE PO ONE (20:17)
[2017-09-21] MEDS ORDERED: PREDNISONE 20 MG TABLET PO ONE (20:19)
[2017-09-21] MEDS ORDERED: ONDANSETRON 4 MG TAB.RAPDIS PO ONE (20:19)
== END 2017-09-21 20:28 | disposition home or self-care (01) ==
LOC: ER 18:15
DX: R21 Rash and other nonspecific skin eruption (principal); B97.89 Other viral agents as the cause of diseases classified elsewhere; L85.9 Epidermal thickening, unspecified; I10 Essential (primary) hypertension
CPT/HCPCS: 99282; J3490 ×2; S0119; J7512

== ENCOUNTER 2017-09-22 16:51 | Emergency (ER) | payer MEDICAID ==
--- NOTE | 2017-09-22 17:11 | ER Document Report ---
HPI - HPI Pain Level: 5 Past Medical History - Social History Family History: Reviewed & Not Pertinent - Past Medical History Cardiac Medical History: Reports: Hx Hypertension Renal/ Medical History: Denies: Hx Peritoneal Dialysis Past Surgical History: Reports: Hx Cholecystectomy, Hx Orthopedic Surgery - ankle, back and cervical surgery, Hx Tubal Ligation Vertical Provider Document - INFECTION CONTROL TRAVEL OUTSIDE OF THE [place] IN LAST 30 DAYS: No Course - Re-evaluation Re-evalutation: 09/22/17 17:11 Patient originally asked for another provider today but when I offered that she could see the other nurse practitioner in this area she said that it was okay to see me I asked her to get undressed and put a gown on today. She states she has burning pain all over. - Vital Signs Vital signs: Temp Pulse Resp BP Pulse Ox 98.3 F 70 147/83 H 94 09/22/17 16:58 09/22/17 16:58 09/22/17 16:58 09/22/17 16:58 Discharge - Discharge Referrals: RAJEEV VELASQUEZ PA [Primary Care Provider] - Follow up as needed
[2017-09-22] MEDS ORDERED: HYDROXYZINE PAMOATE 50 MG CAPSULE PO ONE (17:19)
[2017-09-22] MEDS ORDERED: OXYCODONE-ACETAMINOPHEN 5-325 MG TABLET PO ONE (17:20)
--- NOTE | 2017-09-22 17:23 | ER Document Report ---
ED Medical Screen (RME) - General Chief Complaint: Rash Stated Complaint: POSSIBLE RASH Time Seen by Provider: 09/22/17 17:10 Mode of Arrival: Ambulatory Information source: Patient Notes: 51-year-old female returns today because of worsening pruritic burning rash that is now spread to her antecubital spaces. He continues to be on her scalp neck trunk. She is agitated and scratching and very uncomfortable. The rash started on Tuesday. She also states that she was having some right-sided low back pain and headache since last week. The Tylenol and Benadryl that I recommended did not help last night when I saw her. She took 60 of prednisone which not make any difference either. She is asking for something for pain and to make this stop itching. No tick bite known, no new medications, the only past medical history she has is hypertension. No fever. TRAVEL OUTSIDE OF THE [place] IN LAST 30 DAYS: No - Related Data Allergies/Adverse Reactions: gabapentin Allergy (Verified 09/21/17 18:22) Difficulty breathing ketorolac [From Toradol] Allergy (Verified 09/21/17 18:22) rash tramadol Allergy (Verified 09/21/17 18:22) Past Medical History - Past Medical History Cardiac Medical History: Reports: Hx Hypertension Renal/ Medical History: Denies: Hx Peritoneal Dialysis Past Surgical History: Reports: Hx Cholecystectomy, Hx Orthopedic Surgery - ankle, back and cervical surgery, Hx Tubal Ligation Physical Exam - Vital signs Vitals: Temp Pulse BP Pulse Ox 98.3 F 70 147/83 H 94 09/22/17 16:58 09/22/17 16:58 09/22/17 16:58 09/22/17 16:58 Course - Vital Signs Vital signs: Temp Pulse Resp BP Pulse Ox 98.3 F 70 147/83 H 94 09/22/17 16:58 09/22/17 16:58 09/22/17 16:58 09/22/17 16:58 Doctor's Discharge - Discharge Referrals: RAJEEV VELASQUEZ PA [Primary Care Provider] - Follow up as needed
[2017-09-22 17:48] LABS: ABSOLUTE EOSINOPHILS # (AUTO) 0.3 10^3/uL (0.0-0.6); ABSOLUTE LYMPHOCYTES (AUTO) 2.7 10^3/uL (0.5-4.7); ABSOLUTE MONOCYTES (AUTO) 0.8 10^3/uL (0.1-1.4); ABSOLUTE NEUT (AUTO) 8.2 10^3/uL (1.7-8.2); BASOPHILS % (AUTO) 0.2 % (0-2); EOSINOPHILS % (AUTO) 2.3 % (0-6); HEMATOCRIT 41.6 % (36.0-47.0); LYMPHOCYTES % (AUTO) 22.4 % (13-45); MEAN CORPUSCULAR HEMOGLOBIN 29.5 pg (27.0-33.4); MEAN CORPUSCULAR HGB CONC 33.6 g/dL (32.0-36.0); MEAN CORPUSCULAR VOLUME 88 fl (80-97); MONOCYTES % (AUTO) 6.6 % (3-13); PLATELET COUNT 198 10^3/uL (150-450); RED BLOOD COUNT 4.74 10^6/uL (3.72-5.28); RED CELL DISTRIBUTION WIDTH 13.6 % (11.5-14.0); SEGMENTED NEUTROPHILS % (AUTO) 68.5 % (42-78); TOTAL CELLS COUNTED % (AUTO) 100 %; WHITE BLOOD COUNT 11.9 10^3/uL (4.0-10.5)
[2017-09-22 17:51] LABS: INTERNATIONAL RATION (INR) 0.83; PROTHROMBIN TIME 11.8 SEC (11.4-15.4)
[2017-09-22 17:52] LABS: APPEARANCE,URINE SLIGHTLY-CLOUDY; BILIRUBIN,URINE NEGATIVE (NEGATIVE); COLOR,URINE YELLOW; GLUCOSE, URINE NEGATIVE (NEGATIVE); KETONES,URINE NEGATIVE (NEGATIVE); LEUKOCYTE ESTERASE,URINE NEGATIVE (NEGATIVE); NITRITE,URINE NEGATIVE (NEGATIVE); PARTIAL THROMBOPLASTIN TIME 24.3 SEC (23.5-35.8); PROTEIN,URINE NEGATIVE (NEGATIVE); URINE SPECIFIC GRAVITY 1.018
[2017-09-22 18:03] LABS: URINE AMPHETAMINES SCREEN NEGATIVE; URINE BARBITURATES SCREEN NEGATIVE; URINE BENZODIAZEPINES SCREEN UNCONFIRMED POSITIVE; URINE COCAINE SCREEN NEGATIVE; URINE MARIJUANA (THC) SCREEN NEGATIVE; URINE METHADONE SCREEN NEGATIVE; URINE PHENCYCLIDINE SCREEN NEGATIVE
[2017-09-22 18:11] LABS: ALANINE AMINOTRANSFERASE 16 U/L (9-52); ALBUMIN 4.1 g/dL (3.5-5.0); ALKALINE PHOSPHATASE 63 U/L (38-126); ANION GAP 12 (5-19); ASPARTATE AMINO TRANSFERASE 15 U/L (14-36); BILIRUBIN,DIRECT 0.2 mg/dL (0.0-0.4); BILIRUBIN,TOTAL 0.2 mg/dL (0.2-1.3); BLOOD UREA NITROGEN 23 mg/dL (7-20); CALCIUM 10.3 mg/dL (8.4-10.2); CARBON DIOXIDE 26 mmol/L (22-30); CHLORIDE 104 mmol/L (98-107); GLUCOSE 106 mg/dL (75-110); SODIUM 142.3 mmol/L (137-145); TOTAL PROTEIN 7.2 g/dL (6.3-8.2)
--- NOTE | 2017-09-22 18:17 | ER Document Report ---
ED Skin Rash/Insect Bite/Abscs - General Chief Complaint: Rash Stated Complaint: POSSIBLE RASH Time Seen by Provider: 09/22/17 17:10 Mode of Arrival: Ambulatory Information source: Patient Notes: 51-year-old female presents to ED today for worsening pruritic rash to her generalized body area. She was seen yesterday in the ED given some steroids and instructed to use Benadryl and cream for the rash. She states it has gotten much worse and it is burning and she has been scratching all night. TRAVEL OUTSIDE OF THE [place] IN LAST 30 DAYS: No - HPI Patient complains to provider of: Skin rash/lesion Onset: Other - Rash started on Tuesday she has a history of chronic head neck back pain with multiple back and neck surgeries for degenerative disc disease and sciatica. She is also had a bilateral tubal ligation gallbladder removal dental surgeries. Quality of pain: Burning Severity: Severe Pain Level: 5 Skin Character: Erythema, Petechial, Rash Quality of rash: Burning Exacerbated by: Denies Relieved by: Denies Similar symptoms previously: Yes Recently seen / treated by doctor: Yes - Related Data Allergies/Adverse Reactions: gabapentin Allergy (Verified 09/21/17 18:22) Difficulty breathing ketorolac [From Toradol] Allergy (Verified 09/21/17 18:22) rash tramadol Allergy (Verified 09/21/17 18:22) Past Medical History - General Information source: Patient - Social History Smoking Status: Never Smoker Cigarette use (# per day): No Chew tobacco use (# tins/day): No Frequency of alcohol use: None Drug Abuse: None Lives with: Family Family History: Reviewed & Not Pertinent Patient has suicidal ideation: No Patient has homicidal ideation: No - Past Medical History Cardiac Medical History: Reports: Hx Hypertension Pulmonary Medical History: Reports: None EENT Medical History: Reports: None Neurological Medical History: Reports: None Endocrine Medical History: Reports: None Renal/ Medical History: Reports: None Malignancy Medical History: Reports: None GI Medical History: Reports: None Musculoskeletal Medical History: Reports Hx Arthritis, Reports Hx Musculoskeletal Deformity, Reports Hx Musculoskeletal Trauma Skin Medical History: Reports None Psychiatric Medical History: Reports: Hx Anxiety Traumatic Medical History: Reports: Hx Fractures Infectious Medical History: Reports: None Past Surgical History: Reports: Hx Cholecystectomy, Hx Orthopedic Surgery - ankle, back and cervical surgery, Hx Tubal Ligation Review of Systems - Review of Systems Constitutional: No symptoms reported EENT: No symptoms reported Cardiovascular: No symptoms reported Respiratory: No symptoms reported Gastrointestinal: No symptoms reported Genitourinary: No symptoms reported Female Genitourinary: No symptoms reported Musculoskeletal: Back pain - Chronic, Muscle pain - Chronic, Muscle stiffness - chronic Skin: Rash - Fine petechial generalized Hematologic/Lymphatic: No symptoms reported Neurological/Psychological: No symptoms reported -: Yes All other systems reviewed and negative Physical Exam - Vital signs Vitals: Temp Pulse BP Pulse Ox 98.3 F 70 147/83 H 94 09/22/17 16:58 09/22/17 16:58 09/22/17 16:58 09/22/17 16:58 Interpretation: Normal - General General appearance: Appears well, Alert - HEENT Head: Normocephalic, Atraumatic Eyes: Normal Pupils: PERRL - Respiratory Respiratory status: No respiratory distress Chest status: Nontender Breath sounds: Normal Chest palpation: Normal - Cardiovascular Rhythm: Regular Heart sounds: Normal auscultation Murmur: No - Abdominal Inspection: Normal Distension: No distension Bowel sounds: Normal Tenderness: Nontender Organomegaly: No organomegaly - Back Back: Normal, Nontender - Extremities General upper extremity: Normal inspection, Nontender, Normal color, Normal ROM , Normal temperature General lower extremity: Normal inspection, Nontender, Normal color, Normal ROM , Normal temperature, Normal weight bearing. No: Qing's sign - Neurological Neuro grossly intact: Yes Cognition: Normal Orientation: AAOx4 Paul Coma Scale Eye Opening: Spontaneous [place] Coma Scale Verbal: Oriented Paul Coma Scale Motor: Obeys Commands [place] Coma Scale Total: 15 Speech: Normal Motor strength normal: LUE, RUE, LLE, RLE Sensory: Normal - Psychological Associated symptoms: Normal affect, Normal mood - Skin Skin Temperature: Warm Skin Moisture: Dry Skin Color: Normal Location of irregularity: Generalized Character of irregularity: Fine, Erythematous, Petechial Course - Re-evaluation Re-evalutation: 09/23/17 02:58 Discussed labs with patient and patient was given a written report of the labs to follow-up with her primary doctor. Patient was treated with Vistaril and prednisone for her rash. She was instructed to follow-up with her primary doctor for any chronic pain management that she needed for her chronic pain. Patient was discharged home with prescription for prednisone and Vistaril and instructed to follow-up with her primary doctor. Patient verbalized understanding of treatment plan and agreement with treatment plan. - Vital Signs Vital signs: Temp Pulse Resp BP Pulse Ox 97.6 F 61 18 140/87 H 96 09/22/17 19:10 09/22/17 19:10 09/22/17 19:10 09/22/17 19:10 09/22/17 19:10 - Laboratory Result Diagrams: 09/22/17 17:34 09/22/17 17:34 Laboratory results interpreted by me: 09/22/17 09/22/17 09/22/17 17:34 17:34 17:34 WBC 11.9 H BUN 23 H Est GFR ( Amer) 59 L Est GFR (Non-Af Amer) 49 L Calcium 10.3 H Urine Urobilinogen 2.0 H Discharge - Discharge Clinical Impression: Rash and nonspecific skin eruption Condition: Stable Disposition: HOME, SELF-CARE Additional Instructions: ACUTE ALLERGIC REACTION: Your symptoms are due to an allergic reaction. Allergy can cause hives, swelling of the hands, feet, and face, hoarseness, and difficulty swallowing or breathing. It may be due to exposure to medication, animal dander, foods, infection, or insect bites. Medication is a common cause, even when prior use of this same medication caused no problems. Acute treatment may include adrenalin and antihistamines. Usually, the specific allergic agent can't be identified unless repeated episodes occur. Home treatment includes the following: (1) Stop any suspicious medications. This will be discussed with you. (2) Oral antihistamines for the next four to five days. Example, diphenhydramine (Benadryl) every four hours. (3) You may also use cimetidine (Tagamet), ranitidine (Zantac), or famotidine ( Pepcid) every four hours if diphenhydramine is not controlling itching and hives. (4) Avoid aspirin until the hives completely disappear. (5) Avoid hot baths or showers until the hives are completely gone. Call the doctor if faintness, difficulty swallowing, tightness in the chest , or wheezing occurs. STEROID MEDICATION INJECTION: You have been given an injection of medicine of the cortisone/steroid class. This medication is used to control inflammation or allergy. It is often continued as a pill for a short period of time, until the acute process subsides. There are usually no side effects from short-term use of cortisone-like medications. Some persons feel an increased sense of well-being and are not sleepy at bedtime. Long-term use of cortisone medications is best avoided, unless required for a severe condition. If your condition does not remit, or relapses after the course of corticosteroid medication, you should consult your physician. STEROID MEDICATION: You have been given a medicine of the cortisone/steroid class. This medication is used to control inflammation or allergy. It is usually only given for a short period of time, until the acute process subsides. There are usually no side effects from short-term use of cortisone-like medications. Some persons feel an increased sense of well-being and are not sleepy at bedtime. Long-term use of cortisone medications is best avoided, unless required for a severe condition. If your condition does not remit, or relapses after the course of corticosteroid medication, you should consult your physician. ACID-SUPPRESSING MEDICATION: You have a prescription for medicine which reduces the stomach's secretion of acid. Examples include Zantac, Tagament, and Pepcid. These drugs are often used to allow healing of ulcers or esophagitis. They may be needed to prevent recurrence of ulcers in some patients, or to prevent damage from acid reflux in the esophagus. Take all medication as prescribed, even after the pain is gone. Regular antacids may be added as needed if you have symptoms while taking this medicine. These medications sometimes are prescribed for allergic reactions because they have anti-histaminic effects and relieve the rash and itching of the reaction. There are usually no side effects from this medication. But, in rare cases and particularly in the elderly, serious problems can occur. Contact your doctor if there is fever, rash, hallucinations, confusion, or unusual bruising. Contact your doctor at once if you develop lightheadedness, black or bloody stool, or bloody vomitus. ANTIHISTAMINES: An antihistamine has been given and/or prescribed to control your symptoms. Antihistamines are used for many reasons, including itching, watering eyes, runny nose, allergic swelling, hives, and insect stings. Antihistamines may cause drowsiness, especially with the first dose. Do not operate machinery or drive while under the effects of the medication. Other common side effects include dry mouth and eyes. In older persons, antihistamines can occasionally cause urinary retention, constipation, and trouble focusing the eyes. Do not combine the medication with alcohol, or with any other medication without talking to your doctor. FOLLOW-UP CARE: If you have been referred to a physician for follow-up care, call the physician s office for an appointment as you were instructed or within the next two days. If you experience worsening or a significant change in your symptoms, notify the physician immediately or return to the Emergency Department at any time for re-evaluation. Prescriptions: Famotidine [Pepcid 20 mg Tablet] 20 mg PO BID #12 tablet Hydroxyzine Pamoate [Vistaril 50 mg Capsule] 50 mg PO DAILY #20 capsule Prednisone [Deltasone 20 mg Tablet] 3 tab PO DAILY 5 Days tablet Forms: Elevated Blood Pressure Referrals: RJAEEV VELASQUEZ PA [Primary Care Provider] - Follow up tomorrow
[2017-09-22] MEDS ORDERED: DEXAMETHASONE SOD PHOS INJ 10 MG/1 ML VIAL IM ONE (18:59)
[2017-09-22] MEDS ORDERED: FAMOTIDINE 20 MG TABLET PO ONE (18:59)
[2017-09-22 19:17] VITALS: BP 140/87
[2017-09-27 07:44] LABS: ROCKY MTN SPOTTED FEVER IGM AB 0.63 index (0.00-0.89)
[2017-09-28 07:41] LABS: ROCKY MTN SPOTTED FEV IGG IFA <1:64 (Neg <1:64)
[2017-09-28 07:42] LABS: ROCKY MTN SPOTTED FEV IGG EIA Positive (Negative)
== END 2017-09-22 19:17 | disposition home or self-care (01) ==
LOC: ER 16:51
DX: R21 Rash and other nonspecific skin eruption (principal); L29.8 Other pruritus; R23.3 Spontaneous ecchymoses; I10 Essential (primary) hypertension; M54.9 Dorsalgia, unspecified; G89.29 Other chronic pain; Z88.6 Allergy status to analgesic agent; Z88.5 Allergy status to narcotic agent; Z88.8 Allergy status to other drugs, medicaments and biological substances
CPT/HCPCS: 99283; 96372; 36415; 87070; 87880; 85025; 85610; 85730; 80053; 81001; 86757 ×2; 80307; J3490 ×2; J1100

== ENCOUNTER 2017-10-25 10:28 | Emergency (ER) | payer MEDICAID ==
[2017-10-25] MEDS ORDERED: NORMAL SALINE 1000 ML 1,000 ML IV ONE (11:13)
[2017-10-25] MEDS ORDERED: ONDANSETRON HCL INJ/PF 4 MG/2 ML SDV IV ONE (11:14)
[2017-10-25] MEDS ORDERED: MORPHINE SULFATE 10 MG/ML INJ IV ONE (11:15)
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
[2017-10-25 12:35] LABS: APPEARANCE,URINE CLEAR; BILIRUBIN,URINE NEGATIVE (NEGATIVE); COLOR,URINE YELLOW; GLUCOSE, URINE NEGATIVE (NEGATIVE); KETONES,URINE NEGATIVE (NEGATIVE); LEUKOCYTE ESTERASE,URINE NEGATIVE (NEGATIVE); NITRITE,URINE NEGATIVE (NEGATIVE); PROTEIN,URINE NEGATIVE (NEGATIVE); URINE SPECIFIC GRAVITY 1.012; UROBILINOGEN,URINE NEGATIVE mg/dL (<2.0)
[2017-10-25 12:40] LABS: ABSOLUTE EOSINOPHILS # (AUTO) 0.1 10^3/uL (0.0-0.6); ABSOLUTE LYMPHOCYTES (AUTO) 1.4 10^3/uL (0.5-4.7); ABSOLUTE MONOCYTES (AUTO) 0.5 10^3/uL (0.1-1.4); ABSOLUTE NEUT (AUTO) 4.4 10^3/uL (1.7-8.2); BASOPHILS % (AUTO) 0.4 % (0-2); EOSINOPHILS % (AUTO) 2.1 % (0-6); HEMATOCRIT 42.8 % (36.0-47.0); HEMOGLOBIN 14.3 g/dL (12.0-15.5); LYMPHOCYTES % (AUTO) 22.2 % (13-45); MEAN CORPUSCULAR HEMOGLOBIN 29.4 pg (27.0-33.4); MEAN CORPUSCULAR HGB CONC 33.4 g/dL (32.0-36.0); MEAN CORPUSCULAR VOLUME 88 fl (80-97); MONOCYTES % (AUTO) 7.6 % (3-13); PLATELET COUNT 216 10^3/uL (150-450); RED BLOOD COUNT 4.88 10^6/uL (3.72-5.28); RED CELL DISTRIBUTION WIDTH 13.6 % (11.5-14.0); SEGMENTED NEUTROPHILS % (AUTO) 67.7 % (42-78); TOTAL CELLS COUNTED % (AUTO) 100 %; WHITE BLOOD COUNT 6.5 10^3/uL (4.0-10.5)
[2017-10-25 13:04] LABS: ALANINE AMINOTRANSFERASE 21 U/L (9-52); ALBUMIN 3.9 g/dL (3.5-5.0); ALKALINE PHOSPHATASE 70 U/L (38-126); ANION GAP 10 (5-19); ASPARTATE AMINO TRANSFERASE 25 U/L (14-36); BILIRUBIN,DIRECT 0.3 mg/dL (0.0-0.4); BILIRUBIN,TOTAL 0.3 mg/dL (0.2-1.3); BLOOD UREA NITROGEN 18 mg/dL (7-20); CALCIUM 10.1 mg/dL (8.4-10.2); CARBON DIOXIDE 26 mmol/L (22-30); CHLORIDE 105 mmol/L (98-107); GLUCOSE 91 mg/dL (75-110); LIPASE 76.2 U/L (23-300); POTASSIUM 4.8 mmol/L (3.6-5.0); SODIUM 140.5 mmol/L (137-145)
[2017-10-25] MEDS ORDERED: HYDROMORPHONE HCL INJ/PF 2 MG/ML AMPULE IV ONE (14:33)
--- NOTE | 2017-10-25 15:13 | RADIOLOGY REPORT (SQ) ---
EXAM DESCRIPTION: CT LTD RENAL STONE PROTOCOL ON COMPLETED DATE/TIME: 10/25/2017 2:59 pm REASON FOR STUDY: right flank pain COMPARISON: None. TECHNIQUE: CT scan of the abdomen and pelvis performed without intravenous or oral contrast. Images reviewed with lung, soft tissue, and bone windows. Reconstructed coronal and sagittal MPR images revi ewed. All images stored on PACS. All CT scanners at this facility use dose modulation, iterative reconstruction, and/or weight based d osing when appropriate to reduce radiation dose to as low as reasonably achievable (ALARA). [facility]: Dose Right [facility]: CareDose [facility]: Dose Right [facility]: Teradose 4D [facility]: [employer] RADIATION DOSE: CT Rad equipment meets quality standard of care and radiation dose reduction techniq ues were employed. CTDIvol: 16.2 mGy. DLP: 951 mGy-cm.mGy. LIMITATIONS: None. FINDINGS: LOWER CHEST: No significant findings. No nodules or infiltrates. NON-CONTRASTED LIVER, SPLEEN, ADRENALS: Evaluation limited by lack of IV contrast. No identified sign ificant masses. PANCREAS: No masses. No peripancreatic inflammatory changes. GALLBLADDER: Surgically absent. RIGHT KIDNEY AND URETER: No suspicious masses. Assessment limited by lack of IV contrast. No signif icant calcifications. No hydronephrosis or hydroureter. LEFT KIDNEY AND URETER: No suspicious masses. Assessment limited by lack of IV contrast. No signifi cant calcifications. No hydronephrosis or hydroureter. AORTA AND RETROPERITONEUM: No aneurysm. No retroperitoneal masses or adenopathy. BOWEL AND PERITONEAL CAVITY: No obvious masses or inflammatory changes. No free fluid. APPENDIX: Normal. PELVIS, BLADDER, AND ABDOMINAL WALL:There is an umbilical hernia containing omental fat only. BONES: No significant findings. OTHER: There are small phleboliths in the pelvis. IMPRESSION: NO SIGNIFICANT OR ACUTE PROCESS IN THE ABDOMEN OR PELVIS. COMMENT: Quality ID # [id number]: Final reports with documentation of one or more dose reduction techniques (e.g., Automated exposure control, adjustment of the mA and/or kV according to patient size, use of iterative reconstruction technique) TECHNICAL DOCUMENTATION: JOB ID: [id number] [employer]- All Rights Reserved Reading location - IP/workstation name: [email or web address]
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
[2017-10-25 16:13] VITALS: BP 130/94
== END 2017-10-25 16:13 | disposition home or self-care (01) ==
LOC: ER 10:28
DX: R10.9 Unspecified abdominal pain (principal)
CPT/HCPCS: 99284; 96361; 96374; 96375; 36415; 83690; 85025; 80053; 81001; 76380; J2270; J1170; J2405; J7030

== ENCOUNTER 2017-11-03 14:36 | Emergency (ER) | payer MEDICAID ==
[2017-11-03] MEDS ORDERED: IBUPROFEN 800 MG TABLET PO ONE (14:46)
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
[2017-11-03 14:58] VITALS: BP 128/71
--- NOTE | 2017-11-03 15:30 | RADIOLOGY REPORT (SQ) ---
EXAM DESCRIPTION: ANKLE LEFT COMPLETE COMPLETED DATE/TIME: 11/03/2017 3:11 pm REASON FOR STUDY: fall and pain fell in a hole, twisted ankle COMPARISON: Left foot three views same date NUMBER OF VIEWS: Three views. TECHNIQUE: AP, lateral, and oblique radiographic images acquired of the left ankle. LIMITATIONS: None. FINDINGS: MINERALIZATION: Normal. BONES: Acute avulsion fragment, along left fibular tip, nondisplaced. Bones otherwise unremarkable a side from of small plantar calcaneal spur JOINTS: Normal alignment at the ankle mortise. No tibiotalar joint effusion SOFT TISSUES: Diffuse lateral soft tissue swelling. No foreign body. OTHER: No other significant finding. IMPRESSION: Acute avulsion, distal fibular tip with lateral soft tissue swelling. Small ankle joint effusion TECHNICAL DOCUMENTATION: JOB ID: [id number] [employer]- All Rights Reserved Reading location - IP/workstation name: [email or web address]
--- NOTE | 2017-11-03 15:32 | RADIOLOGY REPORT (SQ) ---
EXAM DESCRIPTION: FOOT LEFT COMPLETE COMPLETED DATE/TIME: 11/03/2017 3:11 pm REASON FOR STUDY: fall and pain COMPARISON: Left ankle films same date NUMBER OF VIEWS: Three views. TECHNIQUE: AP, lateral and oblique radiographic images acquired of the left foot. LIMITATIONS: None. FINDINGS: MINERALIZATION: Normal. BONES: Hairline acute nondisplaced fracture proximal base 5th metatarsal marked with arrows on the ob lique view. Remainder of the bones of the left foot are otherwise unremarkable aside from a small pl enedina calcaneal spur JOINTS: No effusions. SOFT TISSUES: Lateral foot soft tissue swelling. No foreign body. OTHER: No other significant finding. IMPRESSION: Hairline acute nondisplaced fracture proximal base 5th metatarsal TECHNICAL DOCUMENTATION: JOB ID: [id number] [employer]- All Rights Reserved Reading location - IP/workstation name: [email or web address]
[2017-11-03] MEDS ORDERED: HYDROCODONE/ACETAMINOPHEN 5-325 MG (6 TAB/ER DISP) PO PRN (15:34)
--- NOTE | 2017-11-03 15:35 | RADIOLOGY REPORT (SQ) ---
EXAM DESCRIPTION: TIBIA FIBULA LEFT COMPLETED DATE/TIME: 11/03/2017 3:11 pm REASON FOR STUDY: fall and pain fell, stepped in hole, twisted ankle COMPARISON: Left ankle films same date NUMBER OF VIEWS: Two views. TECHNIQUE: Two radiographic images acquired of the left tibia and fibula to include the knee and ank le in at least one projection. LIMITATIONS: None. FINDINGS: MINERALIZATION: Normal. BONES: Acute nondisplaced avulsion fragment distal fibular tip, marked with an arrow on the AP view. Remainder of the tibia and fibula are intact. SOFT TISSUES: No obvious swelling or foreign body. OTHER: No other significant finding. IMPRESSION: Acute nondisplaced avulsion fragment, distal left fibular tip TECHNICAL DOCUMENTATION: JOB ID: [id number] [email or web address] All Rights Reserved Reading location - IP/workstation name: [email or web address]
== END 2017-11-03 15:54 | disposition home or self-care (01) ==
LOC: ER 14:36
PROC: 2W3MX1Z Immobilization of Left Lower Extremity using Splint (ICD-10-PCS; principal; 2017-11-03)
DX: S82.832A Other fracture of upper and lower end of left fibula, initial encounter for closed fracture (principal); S92.355A Nondisplaced fracture of fifth metatarsal bone, left foot, initial encounter for closed fracture; W17.2XXA Fall into hole, initial encounter
CPT/HCPCS: 99283; 73610; 73630; 73590; 29505; J3490

== ENCOUNTER 2017-11-07 12:17 | Emergency (ER) | payer MEDICAID ==
[2017-11-07 13:11] VITALS: BP 143/96
[2017-11-07] MEDS ORDERED: HYDROCODONE/ACETAMINOPHEN 5-325 MG (6 TAB/ER DISP) PO PRN (13:28)
--- NOTE | 2017-11-07 13:32 | ER Document Report ---
HPI - HPI Patient complains to provider of: Splint recheck Onset: Other - 5 days Onset/Duration: Worse Quality of pain: Achy Pain Level: 5 Context: Patient has a history of a foot and ankle fracture from 5 days ago. Patient states that she took a shower and accidentally got her splint wet. Patient complains of irritation from the splint. Associated Symptoms: Other - Left foot and ankle pain Exacerbated by: Movement Relieved by: Denies Similar symptoms previously: No Recently seen / treated by doctor: Yes - ROS ROS below otherwise negative: Yes Systems Reviewed and Negative: Yes All other systems reviewed and negative - CONSTITUTIONAL Constitutional: DENIES: Fever - MUSCULOSKELETAL Musculoskeletal: REPORTS: Extremity pain - L LE fracture - DERM Skin Color: Normal Past Medical History - General Information source: Patient - Social History Smoking Status: Never Smoker Chew tobacco use (# tins/day): No Frequency of alcohol use: None Drug Abuse: None Occupation: None Lives with: Family Family History: Reviewed & Not Pertinent Patient has suicidal ideation: No Patient has homicidal ideation: No - Past Medical History Cardiac Medical History: Reports: Hx Hypertension Renal/ Medical History: Denies: Hx Peritoneal Dialysis Musculoskeletal Medical History: Reports Hx Arthritis, Reports Hx Musculoskeletal Deformity, Reports Hx Musculoskeletal Trauma Psychiatric Medical History: Reports: Hx Anxiety Traumatic Medical History: Reports: Hx Fractures Past Surgical History: Reports: Hx Cholecystectomy, Hx Orthopedic Surgery - ankle, back and cervical surgery, Hx Tubal Ligation - Immunizations Immunizations up to date: Yes Vertical Provider Document - CONSTITUTIONAL Agree With Documented VS: Yes Exam Limitations: No Limitations General Appearance: WD/WN, No Apparent Distress - INFECTION CONTROL TRAVEL OUTSIDE OF THE [place] IN LAST 30 DAYS: No - HEENT HEENT: Atraumatic, Normocephalic - NECK Neck: Normal Inspection - RESPIRATORY Respiratory: No Respiratory Distress - CARDIOVASCULAR Pulses: Normal: Dorsalis pedis - BACK Back: Normal Inspection - MUSCULOSKELETAL/EXTREMETIES Musculoskeletal/Extremeties: MAEW, Tender - left foot tenderness over base of fifth metatarsal, left lateral malleolar tenderness with 1+ edema, Edema - NEURO Level of Consciousness: Awake, Alert, Appropriate Motor/Sensory: No Motor Deficit - DERM Integumentary: Warm, Dry, No Rash Course - Vital Signs Vital signs: Temp Pulse Resp BP Pulse Ox 97.4 F 71 16 143/96 H 96 11/07/17 13:07 11/07/17 13:07 11/07/17 13:07 11/07/17 13:07 11/07/17 13:07 - Diagnostic Test Radiology reviewed: Reports reviewed - from previous er visit Procedures - Immobilization Left Foot Pre-Proc Neuro Vasc Exam: Normal Immobilizer type: Posterior ankle Performed by: PCT Post-Proc Neuro Vasc Exam: Normal Alignment checked and good: Yes Discharge - Discharge Clinical Impression: Aftercare for cast or splint check or change Nondisplaced fracture of fifth left metatarsal bone Qualifiers: Encounter type: initial encounter Fracture type: closed Qualified Code(s): S92.355A - Nondisplaced fracture of fifth metatarsal bone, left foot, initial encounter for closed fracture Avulsion fracture of ankle Qualifiers: Encounter type: initial encounter Fracture type: closed Laterality: right Qualified Code(s): S82.891A - Other fracture of right lower leg, initial encounter for closed fracture Condition: Stable Disposition: HOME, SELF-CARE Instructions: Fracture ([facility]), Oral Narcotic Medication ([facility]), Temporary Splint ([facility]) Additional Instructions: Return immediately for any new or worsening symptoms Followup with your primary care provider, call tomorrow to make a followup appointment Follow-up with orthopedics for further evaluation, call for an appointment Referrals: RAJEEV VELASQUEZ PA [Primary Care Provider] - Follow up as needed [facility] [Provider Group] - Follow up in 3-5 days
== END 2017-11-07 13:50 | disposition home or self-care (01) ==
LOC: ER 12:17
DX: S92.355A Nondisplaced fracture of fifth metatarsal bone, left foot, initial encounter for closed fracture (principal); S82.891A Other fracture of right lower leg, initial encounter for closed fracture; X58.XXXA Exposure to other specified factors, initial encounter
CPT/HCPCS: 99283

== ENCOUNTER 2017-11-18 12:18 | Emergency (ER) | payer MEDICAID ==
--- NOTE | 2017-11-18 14:03 | RADIOLOGY REPORT (SQ) ---
EXAM DESCRIPTION: FOOT BILATERAL 3 VIEWS COMPLETED DATE/TIME: 11/18/2017 1:53 pm REASON FOR STUDY: hx fracture. not seen ortho/ increased pain COMPARISON: 11/03/2017. NUMBER OF VIEWS: Three views. TECHNIQUE: AP, lateral and oblique radiographic images acquired of the right and left foot. LIMITATIONS: None. FINDINGS: MINERALIZATION: Normal. BONES: No acute fracture or dislocation. Plantar calcaneal spurs and both feet. No worrisome bone l esions. JOINTS: No effusions. SOFT TISSUES: No soft tissue swelling. No foreign body. OTHER: No other significant finding. IMPRESSION: NEGATIVE STUDY OF THE RIGHT AND LEFT FEET. NO RADIOGRAPHIC EVIDENCE OF ACUTE INJURY. TECHNICAL DOCUMENTATION: JOB ID: [id number] [employer]- All Rights Reserved Reading location - IP/workstation name: [email or web address]
--- NOTE | 2017-11-18 14:47 | ER Document Report ---
ED Extremity Problem, Lower - General Chief Complaint: Foot Pain Stated Complaint: LEFT FOOT/LEG PAIN Time Seen by Provider: 11/18/17 12:56 Mode of Arrival: Ambulatory Information source: Patient Notes: Patient is a 52-year-old female comes emergency room for the third time since November 03 for same complaint. On about the or patient stated she fell while stepping in hole and twisted her ankle they did x-rays today of the left foot which showed an acute avulsion of the distal fibular tip with lateral soft tissue swelling. But otherwise unremarkable except for a small plantar calcaneal spur the x-ray of the of the foot show there was a hairline acute nondisplaced fracture of the proximal base fifth metatarsal. She returned on or about the complaining of pain and then she returns today with the same complaint. She states that she is unable to get into see her primary doctor and is got an appointment with [facility] for surgery next week. She states that the foot is still bothering her and extremely painful she has not had the splint removed since the day it was put on. She denies any other known trauma or recent trauma after the application of the splint. TRAVEL OUTSIDE OF THE [place] IN LAST 30 DAYS: No - HPI Patient complains to provider of: Injury, Pain, Swelling Location: Ankle, Foot Occurred: Other - 14 days ago Where: Home Onset/Duration: Sudden Quality of pain: Sharp, Stabbing, Throbbing Severity: Moderate Pain Level: 3 Context: Fell, Other - Stepped in a hole Associated symptoms: Unable to bear weight Exacerbated by: Hanging down, Movement Relieved by: Nothing - Related Data Allergies/Adverse Reactions: gabapentin Allergy (Verified 11/18/17 12:19) Difficulty breathing ketorolac [From Toradol] Allergy (Verified 11/18/17 12:19) rash tramadol Allergy (Verified 11/18/17 12:19) Past Medical History - General Information source: Patient - Social History Smoking Status: Never Smoker Cigarette use (# per day): No Chew tobacco use (# tins/day): No Smoking Education Provided: No Frequency of alcohol use: None Drug Abuse: None Family History: Reviewed & Not Pertinent Patient has suicidal ideation: No Patient has homicidal ideation: No - Past Medical History Cardiac Medical History: Reports: Hx Hypertension Renal/ Medical History: Denies: Hx Peritoneal Dialysis Musculoskeletal Medical History: Reports Hx Arthritis, Reports Hx Musculoskeletal Deformity, Reports Hx Musculoskeletal Trauma Psychiatric Medical History: Reports: Hx Anxiety Traumatic Medical History: Reports: Hx Fractures Past Surgical History: Reports: Hx Cholecystectomy, Hx Orthopedic Surgery - ankle, back and cervical surgery, Hx Tubal Ligation - Immunizations Immunizations up to date: Yes Review of Systems - Review of Systems Constitutional: No symptoms reported EENT: No symptoms reported Cardiovascular: No symptoms reported Respiratory: No symptoms reported Gastrointestinal: No symptoms reported Genitourinary: No symptoms reported Female Genitourinary: No symptoms reported Musculoskeletal: Muscle pain, Ankle swelling, Other - Examination of patient's left foot shows there to be some mild swelling at the ankle area only. It is circumferential but very minimal. Patient displays 2+ pulses on the dorsalis pedis and posterior tibials and good moving her toes. Patient is reluctant to move her ankle or foot because of pain. There is no discoloration no ecchymosis there is more tenderness on the lateral fifth metatarsal. To palpation. There is no warmth felt in the foot. Skin: No symptoms reported Hematologic/Lymphatic: No symptoms reported Neurological/Psychological: No symptoms reported -: Yes All other systems reviewed and negative Physical Exam - Vital signs Vitals: Temp Pulse Resp BP Pulse Ox 97.7 F 85 18 139/90 H 96 11/18/17 12:28 11/18/17 12:28 11/18/17 12:28 11/18/17 12:28 11/18/17 12:28 Interpretation: Hypertensive - Notes Notes: Well-nourished well-developed 52-year-old female no apparent distress - General General appearance: Alert In distress: None - HEENT Head: Normocephalic, Atraumatic Eyes: Normal - Respiratory Respiratory status: No respiratory distress Chest status: Nontender Breath sounds: Normal. No: Rales, Rhonchi, Stridor, Wheezing Chest palpation: Normal - Cardiovascular Rhythm: Regular Heart sounds: Normal auscultation Murmur: No - Abdominal Inspection: Normal Distension: No distension, Distended bladder Tenderness: Nontender Organomegaly: No organomegaly - Extremities General upper extremity: Normal inspection, Nontender, Normal ROM, Normal strength General lower extremity: Tender, Edema, Normal color, Normal weight bearing, Other - Examination of the lower extremity left foot and ankle shows mild swelling. There is circumferential but not a marked amount. Patient has good dorsalis pedal pulse and good posterior tibial pulses. She has good flexion extension of the toes but is reluctant to move the ankle and foot. Color of the foot is normal.. No: Normal inspection, Nontender, Normal ROM, Normal strength, Normal temperature, Qing's sign Foot: Tender, Edema, Tender 5th metatarsal, Unable to bear weight. No: Normal, Nontender, Abrasion, Deformity, Ecchymosis - Neurological Neuro grossly intact: Yes Cognition: Normal Orientation: AAOx4 [place] Coma Scale Eye Opening: Spontaneous [place] Coma Scale Verbal: Oriented [place] Coma Scale Motor: Obeys Commands [place] Coma Scale Total: 15 Speech: Normal - Skin Skin Temperature: Warm Skin Moisture: Dry Skin Color: Normal Course - Re-evaluation Re-evalutation: 11/18/17 15:38 At this point the x-rays were nonconclusive so we will treat patient as if she still has a fracture of the distal fibular styloid fracture and the fifth metatarsal fracture. I will give her some pain medication as last time and that she is to follow-up with the clinic that she indicated to me the [facility] for surgery next week. - Vital Signs Vital signs: Temp Pulse Resp BP Pulse Ox 97.7 F 85 18 139/90 H 96 11/18/17 12:28 11/18/17 12:28 11/18/17 12:28 11/18/17 12:28 11/18/17 12:28 Discharge - Discharge Clinical Impression: Fracture of fifth metatarsal bone of left foot Qualifiers: Encounter type: sequela Fracture type: closed Fracture alignment: nondisplaced Qualified Code(s): S92.355S - Nondisplaced fracture of fifth metatarsal bone, left foot, sequela Condition: Stable Disposition: HOME, SELF-CARE Instructions: Foot Fracture ([facility]) Additional Instructions: Home and rest. Leave the splint on until you follow-up with the [facility] for surgery. Highly suggest you contact them and see if he can move the appointment up. Should you have any concerns or problems return to ER for recheck. Prescriptions: Hydrocodone/Acetaminophen [[place] 5-325 mg Tablet] 1 tab PO Q6 #12 tablet Referrals: RAJEEV VELASQUEZ PA [Primary Care Provider] - Follow up as needed
[2017-11-18] MEDS ORDERED: ACETAMINOPHEN 325 MG TABLET PO ONE (15:02)
[2017-11-18 15:50] VITALS: BP 130/88
== END 2017-11-18 15:50 | disposition home or self-care (01) ==
LOC: ER 12:18
PROC: 2W3RX1Z Immobilization of Left Lower Leg using Splint (ICD-10-PCS; principal; 2017-11-18)
DX: M79.672 Pain in left foot (principal); S92.355S Nondisplaced fracture of fifth metatarsal bone, left foot, sequela; X58.XXXS Exposure to other specified factors, sequela; I10 Essential (primary) hypertension; Z88.6 Allergy status to analgesic agent; Z90.49 Acquired absence of other specified parts of digestive tract; Z98.51 Tubal ligation status
CPT/HCPCS: 99283; 73630; 29515; J3490

== ENCOUNTER 2018-03-22 09:56 | Emergency (ER) | payer MEDICAID ==
[2018-03-22] MEDS ORDERED: NORMAL SALINE 1000 ML 1,000 ML IV ONE (10:18)
--- NOTE | 2018-03-22 10:24 | ER Document Report ---
ED GI/ - General Chief Complaint: Pelvic Pain Stated Complaint: BACK/PELVIC PAIN Time Seen by Provider: 03/22/18 10:11 Primary Care Provider: RAJEEV VELASQUEZ PA [NO LOCAL MD] - Follow up as needed TRAVEL OUTSIDE OF THE [place] IN LAST 30 DAYS: No - HPI Patient complains to provider of: Dysuria, Flank pain Onset: Other - 4 days Timing/Duration: Persistent, Worse Quality of pain: Achy, Fullness, Pressure Severity at maximum: Severe Severity in ED: Severe Pain Level: 5 Location: Right flank Associated symptoms: Diarrhea, Nausea, Urinary frequency Exacerbated by: Denies Relieved by: Denies Similar symptoms previously: No Recently seen / treated by doctor: No Notes: 03/22/18 10:22 Patient is a 52-year-old female presenting to the emergency department today complaining of 4-day history of right-sided flank pain, pain starts at the right CVA and radiates down to the pelvis, she reports urinary frequency, small amount of diarrhea and nausea, denies any fever, no vomiting, no blood in her stool, denies history of similar symptoms previously, only surgery on the abdomen previously as a cholecystectomy - Related Data Allergies/Adverse Reactions: gabapentin Allergy (Verified 11/18/17 12:19) Difficulty breathing ketorolac [From Toradol] Allergy (Verified 11/18/17 12:19) rash tramadol Allergy (Verified 11/18/17 12:19) Past Medical History - General Information source: Patient - Social History Smoking Status: Never Smoker Family History: Reviewed & Not Pertinent - Past Medical History Cardiac Medical History: Reports: Hx Hypertension Renal/ Medical History: Denies: Hx Peritoneal Dialysis Musculoskeletal Medical History: Reports Hx Arthritis, Reports Hx Musculoskel etal Deformity, Reports Hx Musculoskeletal Trauma Psychiatric Medical History: Reports: Hx Anxiety Traumatic Medical History: Reports: Hx Fractures Past Surgical History: Reports: Hx Cholecystectomy, Hx Orthopedic Surgery - a nkle, back and cervical surgery, Hx Tubal Ligation - Immunizations Immunizations up to date: Yes Review of Systems - Review of Systems Constitutional: No symptoms reported EENT: No symptoms reported Cardiovascular: No symptoms reported Respiratory: No symptoms reported Gastrointestinal: See HPI Genitourinary: See HPI Female Genitourinary: No symptoms reported Musculoskeletal: No symptoms reported Skin: No symptoms reported Hematologic/Lymphatic: No symptoms reported Neurological/Psychological: No symptoms reported -: Yes All other systems reviewed and negative Physical Exam - Vital signs Vitals: Temp Pulse Resp BP Pulse Ox 97.6 F 71 20 140/93 H 95 03/22/18 10:04 03/22/18 10:04 03/22/18 10:04 03/22/18 10:04 03/22/18 10:04 Interpretation: Normal - General General appearance: Appears well, Alert - HEENT Head: Normocephalic, Atraumatic Eyes: Normal Pupils: PERRL - Respiratory Respiratory status: No respiratory distress Chest status: Nontender Breath sounds: Normal Chest palpation: Normal - Cardiovascular Rhythm: Regular Heart sounds: Normal auscultation Murmur: No - Abdominal Inspection: Normal Distension: No distension Bowel sounds: Normal Tenderness: Tender - Tenderness to palpate in the right flank without any specific point tenderness Organomegaly: No organomegaly - Genitourinary External exam: Normal Speculum exam: Normal Vaginal bleeding: None Bimanuel exam: Other - Patient moans in pain with any attempt to perform pelvic exam with speculum and/or digitally - Back Back: Normal, Nontender - Extremities General upper extremity: Normal inspection, Nontender, Normal color, Normal ROM, Normal temperature General lower extremity: Normal inspection, Nontender, Normal color, Normal ROM, Normal temperature, Normal weight bearing. No: Qing's sign - Neurological Neuro grossly intact: Yes Cognition: Normal Orientation: AAOx4 [place] Coma Scale Eye Opening: Spontaneous [place] Coma Scale Verbal: Oriented [place] Coma Scale Motor: Obeys Commands [place] Coma Scale Total: 15 Speech: Normal Motor strength normal: LUE, RUE, LLE, RLE Sensory: Normal - Psychological Associated symptoms: Normal affect, Normal mood - Skin Skin Temperature: Warm Skin Moisture: Dry Skin Color: Normal Course - Re-evaluation Re-evalutation: 03/22/18 13:12 Lab and imaging findings discussed with patient at bedside which are relatively unremarkable except for diverticulosis without signs of diverticulitis, patient advised to follow-up with gynecology, will be given a prescription for nonnarcotic pain medication, I did review her history on the [place] controlled substances database, she does have a relatively high score for use and potential for abuse/overdose - Vital Signs Vital signs: Temp Pulse Resp BP Pulse Ox 97.6 F 71 20 140/93 H 95 03/22/18 10:04 03/22/18 10:04 03/22/18 10:04 03/22/18 10:04 03/22/18 10:04 - Laboratory Result Diagrams: 03/22/18 11:20 03/22/18 11:20 Laboratory results interpreted by me: 03/22/18 11:20 Chloride 110 H - Diagnostic Test Radiology reviewed: Image reviewed, Reports reviewed Discharge - Discharge Clinical Impression: Abdominal pain, Pelvic pain Condition: Stable Disposition: HOME, SELF-CARE Instructions: Abdominal Pain ([facility]), Pelvic Pain ([facility]) Additional Instructions: Follow up with your primary care provider and a millinery designer in one to 2 days. Return to the emergency room immediately if symptoms worsen or any additional concerns. Prescriptions: Naproxen [Naprosyn 375 Mg Tablet] 375 mg PO BID #60 tablet Referrals: RAJEEV VELASQUEZ PA [NO LOCAL MD] - Follow up as needed KEELEY NOBLES DO [ACTIVE STAFF] - Follow up as needed
--- NOTE | 2018-03-22 10:51 | RADIOLOGY REPORT (SQ) ---
EXAM DESCRIPTION: CT LTD RENAL STONE PROTOCOL ON COMPLETED DATE/TIME: 03/22/2018 10:41 am REASON FOR STUDY: r flank pain COMPARISON: 10/25/2017 TECHNIQUE: CT scan of the abdomen and pelvis performed without intravenous or oral contrast. Images reviewed with lung, soft tissue, and bone windows. Reconstructed coronal and sagittal MPR images revi ewed. All images stored on PACS. All CT scanners at this facility use dose modulation, iterative reconstruction, and/or weight based d osing when appropriate to reduce radiation dose to as low as reasonably achievable (ALARA). [facility]: Dose Right [facility]: CareDose [facility]: Dose Right [facility]: Teradose 4D [facility]: Smart Changelight RADIATION DOSE: CT Rad equipment meets quality standard of care and radiation dose reduction techniq ues were employed. CTDIvol: 16.4 mGy. DLP: 977 mGy-cm.mGy. LIMITATIONS: None. FINDINGS: LOWER CHEST: No significant findings. No nodules or infiltrates. NON-CONTRASTED LIVER, SPLEEN, ADRENALS: Evaluation limited by lack of IV contrast. No identified sign ificant masses. PANCREAS: No masses. No peripancreatic inflammatory changes. GALLBLADDER: Surgically absent. RIGHT KIDNEY AND URETER: No suspicious masses. Assessment limited by lack of IV contrast. No signif icant calcifications. No hydronephrosis or hydroureter. LEFT KIDNEY AND URETER: No suspicious masses. Assessment limited by lack of IV contrast. No signifi cant calcifications. No hydronephrosis or hydroureter. AORTA AND RETROPERITONEUM: No aneurysm. No retroperitoneal masses or adenopathy. BOWEL AND PERITONEAL CAVITY: No obvious masses or inflammatory changes. No free fluid. Severe sigmoi d diverticulosis. APPENDIX: Normal. PELVIS, BLADDER, AND ABDOMINAL WALL:No abnormal masses. No free fluid. Bladder normal. BONES: No significant findings. OTHER: No other significant finding. IMPRESSION: 1. No acute CT findings to explain right flank pain. No evidence of urinary tract calc ulus or hydronephrosis. 2. Severe sigmoid diverticulosis without evidence of acute diverticulitis. COMMENT: Quality ID # [id number]: Final reports with documentation of one or more dose reduction techniques (e.g., Automated exposure control, adjustment of the mA and/or kV according to patient size, use of iterative reconstruction technique) TECHNICAL DOCUMENTATION: JOB ID: [id number] [employer]- All Rights Reserved Reading location - IP/workstation name: [email or web address]
[2018-03-22 11:03] LABS: APPEARANCE,URINE SLIGHTLY-CLOUDY; BILIRUBIN,URINE NEGATIVE (NEGATIVE); COLOR,URINE STRAW; GLUCOSE, URINE NEGATIVE (NEGATIVE); KETONES,URINE NEGATIVE (NEGATIVE); LEUKOCYTE ESTERASE,URINE NEGATIVE (NEGATIVE); NITRITE,URINE NEGATIVE (NEGATIVE); PROTEIN,URINE NEGATIVE (NEGATIVE); URINE SPECIFIC GRAVITY 1.005; UROBILINOGEN,URINE NEGATIVE mg/dL (<2.0)
[2018-03-22] MEDS ORDERED: ONDANSETRON HCL INJ/PF 4 MG/2 ML SDV IV ONE (11:03)
[2018-03-22 11:46] LABS: ABSOLUTE EOSINOPHILS # (AUTO) 0.1 10^3/uL (0.0-0.6); ABSOLUTE LYMPHOCYTES (AUTO) 1.7 10^3/uL (0.5-4.7); ABSOLUTE MONOCYTES (AUTO) 0.5 10^3/uL (0.1-1.4); ABSOLUTE NEUT (AUTO) 4.1 10^3/uL (1.7-8.2); BASOPHILS % (AUTO) 0.4 % (0-2); EOSINOPHILS % (AUTO) 1.3 % (0-6); HEMATOCRIT 39.5 % (36.0-47.0); HEMOGLOBIN 13.6 g/dL (12.0-15.5); LYMPHOCYTES % (AUTO) 26.8 % (13-45); MEAN CORPUSCULAR HEMOGLOBIN 29.4 pg (27.0-33.4); MEAN CORPUSCULAR HGB CONC 34.4 g/dL (32.0-36.0); MEAN CORPUSCULAR VOLUME 85 fl (80-97); MONOCYTES % (AUTO) 7.6 % (3-13); PLATELET COUNT 199 10^3/uL (150-450); RED BLOOD COUNT 4.62 10^6/uL (3.72-5.28); RED CELL DISTRIBUTION WIDTH 13.7 % (11.5-14.0); SEGMENTED NEUTROPHILS % (AUTO) 63.9 % (42-78); TOTAL CELLS COUNTED % (AUTO) 100 %; WHITE BLOOD COUNT 6.5 10^3/uL (4.0-10.5)
[2018-03-22 12:03] LABS: ALANINE AMINOTRANSFERASE 30 U/L (9-52); ALBUMIN 4.2 g/dL (3.5-5.0); ALKALINE PHOSPHATASE 85 U/L (38-126); ANION GAP 7 (5-19); ASPARTATE AMINO TRANSFERASE 25 U/L (14-36); BILIRUBIN,DIRECT 0.3 mg/dL (0.0-0.4); BILIRUBIN,TOTAL 0.4 mg/dL (0.2-1.3); BLOOD UREA NITROGEN 17 mg/dL (7-20); CALCIUM 9.5 mg/dL (8.4-10.2); CARBON DIOXIDE 26 mmol/L (22-30); CHLORIDE 110 mmol/L (98-107); GLUCOSE 90 mg/dL (75-110); POTASSIUM 4.4 mmol/L (3.6-5.0); SODIUM 142.6 mmol/L (137-145); TOTAL PROTEIN 7.3 g/dL (6.3-8.2)
[2018-03-22 13:35] VITALS: BP 126/71
== END 2018-03-22 13:35 | disposition home or self-care (01) ==
LOC: ER 09:56
DX: R10.2 Pelvic and perineal pain (principal); R30.0 Dysuria; R10.9 Unspecified abdominal pain; I10 Essential (primary) hypertension; Z90.49 Acquired absence of other specified parts of digestive tract; Z98.51 Tubal ligation status
CPT/HCPCS: 99284; 96361; 96374; 36415; 87086; 83690; 85025; 80053; 81001; 76380; J2405; J7030

== ENCOUNTER 2018-05-26 12:40 | Emergency (ER) | payer MEDICAID ==
[2018-05-26 12:56] VITALS: BP 125/76
[2018-05-26] MEDS ORDERED: OXYCODONE-ACETAMINOPHEN 5-325 MG TABLET PO ONE (13:02)
[2018-05-26] MEDS ORDERED: SULFAMETHOXAZOLE/TRIMETHOPRIM 800-160 MG TABLET PO ONE (13:02)
[2018-05-26] MEDS ORDERED: CEPHALEXIN 500 MG CAPSULE PO ONE (13:02)
--- NOTE | 2018-05-26 13:06 | ER Document Report ---
HPI - HPI Patient complains to provider of: Infection under right axilla Time Seen by Provider: 05/26/18 12:54 Onset: Other - 5 days Onset/Duration: Persistent Quality of pain: Achy Pain Level: 5 Context: Patient complains of tender red area under right axilla for the past 4-5 days. Patient states she has had similar episode to the left axilla in the past. Patient denies any fever. Patient denies any history of MRSA. Associated Symptoms: Other - Skin infection to left axilla. denies: Fever Exacerbated by: Movement Relieved by: Denies Similar symptoms previously: Yes Recently seen / treated by doctor: No - ROS ROS below otherwise negative: Yes Systems Reviewed and Negative: Yes All other systems reviewed and negative - CONSTITUTIONAL Constitutional: DENIES: Fever, Chills - CARDIOVASCULAR Cardiovascular: DENIES: Chest pain - GASTROINTESTINAL Gastrointestinal: DENIES: Nausea - REPRODUCTIVE Reproductive: DENIES: : - MUSCULOSKELETAL Musculoskeletal: REPORTS: Extremity pain - DERM Skin Color: Erythema Past Medical History - General Information source: Patient - Social History Smoking Status: Never Smoker Frequency of alcohol use: None Drug Abuse: None Occupation: None Lives with: Spouse/Significant other Family History: Reviewed & Not Pertinent - Past Medical History Cardiac Medical History: Reports: Hx Hypertension Renal/ Medical History: Denies: Hx Peritoneal Dialysis Musculoskeletal Medical History: Reports Hx Arthritis, Reports Hx Musculoskeletal Deformity, Reports Hx Musculoskeletal Trauma Psychiatric Medical History: Reports: Hx Anxiety Traumatic Medical History: Reports: Hx Fractures Past Surgical History: Reports: Hx Cholecystectomy, Hx Orthopedic Surgery - ankle, back and cervical surgery, Hx Tubal Ligation - Immunizations Immunizations up to date: Yes Vertical Provider Document - CONSTITUTIONAL Agree With Documented VS: Yes Exam Limitations: No Limitations General Appearance: WD/WN, No Apparent Distress - INFECTION CONTROL TRAVEL OUTSIDE OF THE [place] IN LAST 30 DAYS: No - HEENT HEENT: Atraumatic, Normocephalic - NECK Neck: Normal Inspection - RESPIRATORY Respiratory: Breath Sounds Normal, No Respiratory Distress - CARDIOVASCULAR Cardiovascular: Regular Rate, Regular Rhythm - BACK Back: Normal Inspection - MUSCULOSKELETAL/EXTREMETIES Musculoskeletal/Extremeties: MAEW - NEURO Level of Consciousness: Awake, Alert, Appropriate Motor/Sensory: No Motor Deficit - DERM Integumentary: Warm, Dry Notes: Folliculitis to right axilla, patient with tender indurated area with surrounding erythema worrisome for cellulitis., No fluctuance, no drainable abscess at this time. Course - Re-evaluation Re-evalutation: 05/26/18 13:04 Patient with findings worrisome for developing abscess at this time, no drainable abscess presently. Discussed worsening symptoms that patient should return immediately for. Patient verbalized understanding and agrees with plan of care. - Vital Signs Vital signs: Temp Pulse Resp BP Pulse Ox 97.8 F 79 18 125/76 96 05/26/18 12:55 05/26/18 12:55 05/26/18 12:55 05/26/18 12:55 05/26/18 12:55 Discharge - Discharge Clinical Impression: Folliculitis, Abscess Cellulitis Qualifiers: Site of cellulitis: extremity Site of cellulitis of extremity: axilla Laterality: right Qualified Code(s): L03.111 - Cellulitis of right axilla Condition: Stable Disposition: HOME, SELF-CARE Instructions: Abscess ([facility]), Cephalexin ([facility]), Folliculitis ([facility]), Trimethoprim-Sulfa ([facility]) Additional Instructions: Return immediately for any new or worsening symptoms Followup with your primary care provider, call tomorrow to make a followup appointment Apply warm compresses for 15 minutes at a time several times each day. Return for any fever, increased pain, increased swelling or any new or worsening symptoms. Prescriptions: Cephalexin Monohydrate [Keflex 500 mg Capsule] 500 mg PO Q6H 7 Days capsule Mupirocin [Bactroban 2% Ointment 22 gm] 1 applic TP TID #22 gm Sulfamethoxazole/Trimethoprim [Bactrim Ds Tablet] 1 each PO BID #20 tablet Referrals: [facility] [Provider Group] - Follow up as needed
== END 2018-05-26 13:12 | disposition home or self-care (01) ==
LOC: ER 12:40
DX: L03.111 Cellulitis of right axilla (principal); L73.9 Follicular disorder, unspecified; L02.91 Cutaneous abscess, unspecified; I10 Essential (primary) hypertension
CPT/HCPCS: 99282; J3490

== ENCOUNTER 2018-07-27 15:02 | Emergency (ER) | payer MEDICAID ==
[2018-07-27 15:08] VITALS: BP 132/83
[2018-07-27] MEDS ORDERED: LIDOCAINE 5% (700 MG) TRANSDERMAL ADH..PATCH TP ONE (16:07)
[2018-07-27] MEDS ORDERED: OXYCODONE HCL IR 5 MG TABLET PO ONE (16:07)
[2018-07-27] MEDS ORDERED: OXYCODONE-ACETAMINOPHEN 5-325 MG TABLET PO ONE (16:10)
--- NOTE | 2018-07-27 16:13 | ER Document Report ---
HPI - HPI Time Seen by Provider: 07/27/18 15:47 Pain Level: 3 Notes: Patient is a 52-year-old female with a history of hypertension and previous back surgery who presents complaining of left lower back pain status post twist injury 3 days ago. Patient states that she was moving a heavy mattress on the floor when she tripped and twisted her back. Patient states that the pain does not radiate. She is still able to eat and drink without difficulty. She is urinating normally and having normal bowel movements. Patient states that the pain is worsened with movement and twisting. She has tried naproxen at home with minimal relief. No other concerns or complaints at this time. Denies any headache, fever, neck pain, URI, sore throat, chest pain, palpitations, syncope, cough, shortness of breath, wheeze, dyspnea, abdominal pain, nausea/vomiting/diarrhea, urinary retention, dysuria, hematuria, loss of control of bowel or bladder, numbness/tingling, saddle anesthesia, muscle paralysis/weakness, or rash. - ROS Systems Reviewed and Negative: Yes All other systems reviewed and negative - CONSTITUTIONAL Constitutional: DENIES: Fever, Chills - REPRODUCTIVE Reproductive: DENIES: : Past Medical History - Social History Smoking Status: Never Smoker Frequency of alcohol use: None Drug Abuse: None Family History: Reviewed & Not Pertinent Patient has suicidal ideation: No Patient has homicidal ideation: No - Past Medical History Cardiac Medical History: Reports: Hx Hypertension Renal/ Medical History: Denies: Hx Peritoneal Dialysis Musculoskeletal Medical History: Reports Hx Arthritis, Reports Hx Musculoskeletal Deformity, Reports Hx Musculoskeletal Trauma Psychiatric Medical History: Reports: Hx Anxiety, Hx Depression - anxiety Traumatic Medical History: Reports: Hx Fractures Past Surgical History: Reports: Hx Cholecystectomy, Hx Orthopedic Surgery - ankle, back and cervical surgery, Hx Tubal Ligation - Immunizations Immunizations up to date: Yes Vertical Provider Document - CONSTITUTIONAL Agree With Documented VS: Yes Notes: PHYSICAL EXAMINATION: GENERAL: Well-appearing, well-nourished and in no acute distress. LUNGS: Breath sounds clear to auscultation bilaterally and equal. No wheezes rales or rhonchi. HEART: Regular rate and rhythm without murmurs, rubs, gallops. ABDOMEN: Soft, nontender, nondistended abdomen. No guarding, no rebound. Normal bowel sounds present. No CVA tenderness bilaterally. No pulsatile mass Musculoskeletal: LE's b/l: FROM to passive/active. Strength 5+/5. No deficits noted. No bony tenderness of extremities. Back: FROM to passive/active. Strength 5+/5. No vertebral point tenderness, stepoffs, or deformities. No other bony tenderness, erythema, swelling, or ecchymosis. SLR negative b/l. + tenderness to the Left L-paraspinal mm and mild spasming that correlates with pain described. No SI jt tenderness. No foot drop Extremities: No cyanosis, clubbing, or edema b/l. Peripheral pulses 2+. Capillary refill less than 2 seconds. NEUROLOGICAL: Normal speech, normal gait. Normal sensory, motor exams. Reflexes 2+ b/l. PSYCH: Normal mood, normal affect. SKIN: Warm, Dry, normal turgor, no rashes or lesions noted. - INFECTION CONTROL TRAVEL OUTSIDE OF THE [place] IN LAST 30 DAYS: No Course - Re-evaluation Re-evalutation: 07/27/18 16:11 Patient is an afebrile, well-hydrated, 52-year-old female who presents to the ED with Lt paraspinal low back pain Vitals are acceptable. PE is otherwise unremarkable for any focal neurological deficits. Pt has no bony tenderness appreciated. Patient was given Lidoderm patch and pain medicine in the ED. She has no significant tachycardia, tachypnea, or hypoxia. She is nontoxic- appearing and is tolerating p.o. without difficulties. There are no signs of infection. No other red flag symptoms noted. No other labs or imaging warranted at this time based on H&P. Low suspicion for any meningitis, fracture, expanding/ruptured AAA, cauda equina syndrome, epidural mass lesion/abscess, herniated disc causing severe spinal stenosis, or other systemic infection at this time. Patient is aware that this condition can change from initial presentation and that she needs monitor symptoms closely for any acute changes. I will send her home with a prescription for robaxin and naproxen. Conservative measures otherwise for symptoms. Recheck with your PCM in 3-5 days. Consider consult with orthopedic/physical therapy. Return to the ED with any worsening/concerning symptoms otherwise as reviewed discharge. Patient is in agreement. - Vital Signs Vital signs: Temp Pulse Resp BP Pulse Ox 97.4 F 73 22 H 132/83 H 95 07/27/18 15:06 07/27/18 15:06 07/27/18 15:06 07/27/18 15:06 07/27/18 15:06 Discharge - Discharge Clinical Impression: Low back pain Qualifiers: Chronicity: acute Back pain laterality: left Sciatica presence: without sciatica Qualified Code(s): M54.5 - Low back pain Condition: Stable Disposition: HOME, SELF-CARE Instructions: Low Back Pain ([facility]) Additional Instructions: Rest, Ice Tylenol/ibuprofen as needed Light stretches daily Strength exercises as able Moist heat and massage may help F/u with your PCP in 3-5 days for a recheck Consider consult(s) with Orthopedics/physical therapy for ongoing/worsening symptoms Return to the ED with any worsening symptoms and/or development of fever, headache, chest pain, palpitations, syncope, shortness of breath, trouble breathing, abdominal pain, n/v/d, blood in stool/urine, loss of control of bowel/bladder, urinary retention, muscle weakness/paralysis, saddle anesthesia, numbness/tingling, or other worsening symptoms that are concerning to you. Prescriptions: Methocarbamol [Robaxin] 500 mg PO TID PRN #12 tablet PRN Reason: Naproxen 500 mg PO BID #10 tablet Forms: Elevated Blood Pressure, Return to Work Referrals: [facility] [Provider Group] - Follow up as needed
== END 2018-07-27 16:23 | disposition home or self-care (01) ==
LOC: ER 15:02
DX: M54.5 Low back pain (principal); X50.0XXA Overexertion from strenuous movement or load, initial encounter; I10 Essential (primary) hypertension; Z90.49 Acquired absence of other specified parts of digestive tract
CPT/HCPCS: 99283; J3490

== ENCOUNTER 2018-08-30 12:38 | Emergency (ER) | payer MEDICAID, MEDICARE ==
[2018-08-30 13:50] LABS: ABSOLUTE EOSINOPHILS # (AUTO) 0.1 10^3/uL (0.0-0.6); ABSOLUTE LYMPHOCYTES (AUTO) 2.2 10^3/uL (0.5-4.7); ABSOLUTE MONOCYTES (AUTO) 0.5 10^3/uL (0.1-1.4); ABSOLUTE NEUT (AUTO) 4.8 10^3/uL (1.7-8.2); BASOPHILS % (AUTO) 0.6 % (0-2); EOSINOPHILS % (AUTO) 1.3 % (0-6); HEMATOCRIT 41.3 % (36.0-47.0); HEMOGLOBIN 13.9 g/dL (12.0-15.5); LYMPHOCYTES % (AUTO) 28.6 % (13-45); MEAN CORPUSCULAR HEMOGLOBIN 28.7 pg (27.0-33.4); MEAN CORPUSCULAR HGB CONC 33.7 g/dL (32.0-36.0); MEAN CORPUSCULAR VOLUME 85 fl (80-97); MONOCYTES % (AUTO) 6.7 % (3-13); PLATELET COUNT 218 10^3/uL (150-450); RED BLOOD COUNT 4.85 10^6/uL (3.72-5.28); RED CELL DISTRIBUTION WIDTH 14.6 % (11.5-14.0); SEGMENTED NEUTROPHILS % (AUTO) 62.8 % (42-78); TOTAL CELLS COUNTED % (AUTO) 100 %; WHITE BLOOD COUNT 7.6 10^3/uL (4.0-10.5)
[2018-08-30 13:51] LABS: INTERNATIONAL RATION (INR) 0.87; PROTHROMBIN TIME 11.8 SEC (11.4-15.4)
[2018-08-30 14:16] LABS: ALANINE AMINOTRANSFERASE 35 U/L (9-52); ALBUMIN 4.2 g/dL (3.5-5.0); ALKALINE PHOSPHATASE 81 U/L (38-126); ANION GAP 8 (5-19); ASPARTATE AMINO TRANSFERASE 51 U/L (14-36); BILIRUBIN,DIRECT 0.3 mg/dL (0.0-0.4); BILIRUBIN,TOTAL 0.3 mg/dL (0.2-1.3); BLOOD UREA NITROGEN 19 mg/dL (7-20); CALCIUM 10.1 mg/dL (8.4-10.2); CARBON DIOXIDE 27 mmol/L (22-30); CHLORIDE 106 mmol/L (98-107); CREATINE KINASE 63 U/L (30-135); GLUCOSE 107 mg/dL (75-110); POTASSIUM 4.5 mmol/L (3.6-5.0); SODIUM 141.2 mmol/L (137-145)
[2018-08-30 14:26] LABS: CREATINE KINASE MB < 0.22 ng/mL (<4.55); TROPONIN I < 0.012 ng/mL
--- NOTE | 2018-08-30 14:27 | RADIOLOGY REPORT (SQ) ---
EXAM DESCRIPTION: CHEST 2 VIEWS COMPLETED DATE/TIME: 08/30/2018 2:19 pm REASON FOR STUDY: [facility] COMPARISON: 08/01/2017 EXAM PARAMETERS: NUMBER OF VIEWS: two views TECHNIQUE: Digital Frontal and Lateral radiographic views of the chest acquired. RADIATION DOSE: NA LIMITATIONS: none FINDINGS: LUNGS AND PLEURA: No opacities, masses or pneumothorax. No pleural effusion. MEDIASTINUM AND HILAR STRUCTURES: No masses or contour abnormalities. HEART AND VASCULAR STRUCTURES: Heart normal size. No evidence for failure. BONES: No acute findings. HARDWARE: Partially evaluated cervical fusion hardware. OTHER: No other significant finding. IMPRESSION: NO ACUTE RADIOGRAPHIC FINDING IN THE CHEST. TECHNICAL DOCUMENTATION: JOB ID: [id number] [employer]- All Rights Reserved Reading location - IP/workstation name: [email or web address]
[2018-08-30 16:18] VITALS: BP 145/100
--- NOTE | 2018-08-31 00:02 | EKG REPORT ---
SEVERITY:- NORMAL ECG - SINUS RHYTHM : Confirmed by: Colleen Dueñas MD 31-Aug-2018 00:00:47
== END 2018-08-30 15:50 | disposition left against medical advice (07) ==
LOC: ER 12:38
DX: Z53.21 Procedure and treatment not carried out due to patient leaving prior to being seen by health care provider (principal)
CPT/HCPCS: 36415; 71046; 80053; 82550; 82553; 84484; 85025; 85610

== ENCOUNTER 2018-10-31 08:43 | Emergency (ER) | payer MEDICAID ==
[2018-10-31] MEDS ORDERED: LIDOCAINE 2% URO-JET 5 ML KIT MM ONE (09:22)
--- NOTE | 2018-10-31 09:29 | ER Document Report ---
HPI - HPI Patient complains to provider of: vaginal pain Time Seen by Provider: 10/31/18 09:15 Onset: Other Onset/Duration: Persistent Quality of pain: Stabbing Severity: Severe Pain Level: 5 Context: This 52-year-old female presents emergency department with complaints of vaginal pain sharp for the last few days. Reports she is sexually active and was sexually active 1 week ago with pain. She denies pain with void. She denies vaginal discharge. She denies itching. She reports she is used [id number] medications including K-Y jelly without relief of symptoms. She reports she does have a history of prolapsed bladder for years. Denies fever vomiting diarrhea. Associated Symptoms: None Exacerbated by: Denies Relieved by: Denies Similar symptoms previously: No Recently seen / treated by doctor: No - CONSTITUTIONAL Constitutional: DENIES: Fever, Chills - REPRODUCTIVE Reproductive: DENIES: : Past Medical History - General Information source: Patient Last Menstrual Period: irregular - Social History Smoking Status: Never Smoker Cigarette use (# per day): No Frequency of alcohol use: None Drug Abuse: None Family History: Reviewed & Not Pertinent Patient has suicidal ideation: No Patient has homicidal ideation: No - Past Medical History Cardiac Medical History: Reports: Hx Hypertension Renal/ Medical History: Reports: Other - prolapsed bladder. Denies: Hx Per itoneal Dialysis Musculoskeletal Medical History: Reports Hx Arthritis, Reports Hx Musculoskeletal Deformity, Reports Hx Musculoskeletal Trauma Psychiatric Medical History: Reports: Hx Anxiety, Hx Depression - anxiety Traumatic Medical History: Reports: Hx Fractures Past Surgical History: Reports: Hx Cholecystectomy, Hx Orthopedic Surgery - ankle, back and cervical surgery, Hx Tubal Ligation - Immunizations Immunizations up to date: Yes Vertical Provider Document - CONSTITUTIONAL Agree With Documented VS: Yes Exam Limitations: No Limitations General Appearance: WD/WN, Mild Distress - holding herself wincing - INFECTION CONTROL TRAVEL OUTSIDE OF THE [place] IN LAST 30 DAYS: No - HEENT HEENT: Atraumatic, Normocephalic - NECK Neck: Normal Inspection, Supple. negative: Lymphadenopathy-Left, Lymphadenopathy-Right - RESPIRATORY Respiratory: Breath Sounds Normal, No Respiratory Distress - CARDIOVASCULAR Cardiovascular: Regular Rate - GI/ABDOMEN Gastrointestinal: Abdomen Soft, Abdomen Non-Tender - REPRODUCTIVE Female Genitalia: Abnormal Inspection - MUSCULOSKELETAL/EXTREMETIES Musculoskeletal/Extremeties: JORDYN GAMEZ - NEURO Level of Consciousness: Awake, Alert, Appropriate Motor/Sensory: No Motor Deficit - DERM Integumentary: Warm, Dry Course - Re-evaluation Re-evalutation: 10/31/18 09:25 52-year-old female with history of prolapsed bladder complains of sharp vaginal pain last few days.. Denies pain with void. Denies vaginal discharge. Reports she is sexually active and does have pain with sex. Reports last time she was active was 1 week ago. Patient just moved here from [place] and does not have a POOL FINISHER. 10/31/18 11:36 Prolapsed bladder noted. No discharge. Patient was instructed on the importance of follow-up with her POOL FINISHER to have the area fixed. She was also instructed on lubricant especially when she has sex. Patient will be discharged and contacted should her STD cultures returned positive. She is verbalized understanding all instructions. Dictation of this chart was performed using voice recognition software; therefo re, there may be some unintended grammatical errors. - Vital Signs Vital signs: Temp Pulse Resp BP Pulse Ox 97.5 F 75 18 150/96 H 96 10/31/18 08:52 10/31/18 08:52 10/31/18 08:52 10/31/18 08:52 10/31/18 08:52 Procedures - Pelvic Exam Pelvic exam Cultures obtained: No - urine Wet prep obtained: Yes Herpes culture obtained: No POC sent to lab: No Foreign body removed: No Bimanual exam performed: Yes Witnessed by: chris BOTELLO Notes: 10/31/18 11:38 PROLAPSED BLADDER, SOFT Discharge - Discharge Clinical Impression: Vaginal pain, Bacterial vaginal infection Condition: Stable Disposition: HOME, SELF-CARE Instructions: Metronidazole ([facility]), [facility]-[employer], Vaginosis, Bacterial ([facility]) Additional Instructions: *You have been evaluated for vaginal pain, prolapsed bladder, bacterial vaginosis *Take medication as prescribed *vaginal lubricant as indicated *Follow up with your BODY PRESSER or the health department for recheck within one week *Avoid sexual intercourse until follow up *Return to ED for worsening condition, changes, needs Prescriptions: Metronidazole [Flagyl 500 mg Tablet] 500 mg PO BID #14 tablet
[2018-10-31 09:54] LABS: APPEARANCE,URINE SLIGHTLY-CLOUDY; BILIRUBIN,URINE NEGATIVE (NEGATIVE); COLOR,URINE YELLOW; GLUCOSE, URINE NEGATIVE (NEGATIVE); KETONES,URINE NEGATIVE (NEGATIVE); LEUKOCYTE ESTERASE,URINE NEGATIVE (NEGATIVE); NITRITE,URINE NEGATIVE (NEGATIVE); PROTEIN,URINE NEGATIVE (NEGATIVE); URINE SPECIFIC GRAVITY 1.014; UROBILINOGEN,URINE NEGATIVE mg/dL (<2.0)
[2018-10-31 10:05] LABS: BACTERIA (WET MOUNT) 3+ BACTERIA SEEN; EPITHELIALS (WET MOUNT) 4+ EPITHELIALS SEEN; T.VAGINALIS (WET MOUNT) NO TRICHOMONAS SEEN; WBCS (WET MOUNT) FEW WBCS SEEN; YEAST (WET MOUNT) NO YEAST SEEN
[2018-10-31 10:36] VITALS: BP 136/91
[2018-10-31] MEDS ORDERED: IBUPROFEN 800 MG TABLET PO ONE (10:39)
[2018-10-31 11:16] LABS: CHLAM PCR NOT DETECTED (NOT DETECT)
== END 2018-10-31 10:46 | disposition home or self-care (01) ==
LOC: ER 08:43
DX: N76.0 Acute vaginitis (principal); B96.89 Other specified bacterial agents as the cause of diseases classified elsewhere; N81.10 Cystocele, unspecified; R10.2 Pelvic and perineal pain; N92.6 Irregular menstruation, unspecified; N94.10 Unspecified dyspareunia; I10 Essential (primary) hypertension
CPT/HCPCS: 99283; 87210; 81025; 81001; 87491; 87591; J3490 ×2

== ENCOUNTER 2019-03-16 09:39 | Emergency (ER) | payer MEDICAID ==
[2019-03-16] MEDS ORDERED: ASPIRIN 81 MG TABLET, CHEWABLE PO ONE (10:16)
[2019-03-16] MEDS ORDERED: IPRATROPIUM/ALBUTEROL 0.5-2.5 MG/3 ML AMPUL NEB ONE (10:18)
--- NOTE | 2019-03-16 10:22 | ER Document Report ---
ED Medical Screen (RME) - General Chief Complaint: Shortness Of Breath Stated Complaint: COUGHING/SHORTNESS OF BREATH, UPPER ABDOMINAL PAIN Time Seen by Provider: 03/16/19 10:13 Mode of Arrival: Wheelchair Information source: Patient Notes: Patient presents complaining of cough for the past 3 months with voice hoarseness. Patient complains of fatigue and shortness of breath. Patient complains of chest pain that radiates around to the back as well. Patient states cough has been productive. Patient does have a history of hypertension. I have greeted and performed a rapid initial assessment of this patient. A comprehensive ED assessment and evaluation of the patient, analysis of test results and completion of the medical decision making process will be conducted by additional ED providers. TRAVEL OUTSIDE OF THE [place] IN LAST 30 DAYS: No - Related Data Allergies/Adverse Reactions: gabapentin Allergy (Verified 10/31/18 08:46) Difficulty breathing ketorolac [From Toradol] Allergy (Verified 10/31/18 08:46) rash tramadol Allergy (Verified 10/31/18 08:46) Past Medical History - Past Medical History Cardiac Medical History: Reports: Hx Hypertension Renal/ Medical History: Denies: Hx Peritoneal Dialysis Musculoskeltal Medical History: Reports Hx Arthritis, Reports Hx Musculoskeletal Deformity, Reports Hx Musculoskeletal Trauma Psychiatric Medical History: Reports: Hx Anxiety, Hx Depression - anxiety Traumatic Medical History: Reports: Hx Fractures Past Surgical History: Reports: Hx Cholecystectomy, Hx Orthopedic Surgery - ankle, back and cervical surgery, Hx Tubal Ligation - Immunizations Immunizations up to date: Yes Physical Exam - Vital signs Vitals: Temp Pulse Resp BP Pulse Ox 98.5 F 85 19 111/64 99 03/16/19 09:45 03/16/19 09:45 03/16/19 09:45 03/16/19 09:45 03/16/19 09:45 - Respiratory Respiratory status: No respiratory distress Chest status: Pain on movement, Pain with cough Breath sounds: Nonproductive cough, Rhonchi Course - Vital Signs Vital signs: Temp Pulse Resp BP Pulse Ox 98.5 F 85 19 111/64 99 03/16/19 09:45 03/16/19 09:45 03/16/19 09:45 03/16/19 09:45 03/16/19 09:45
[2019-03-16 11:00] LABS: ABSOLUTE EOSINOPHILS # (AUTO) 0.2 10^3/uL (0.0-0.6); ABSOLUTE LYMPHOCYTES (AUTO) 2.3 10^3/uL (0.5-4.7); ABSOLUTE MONOCYTES (AUTO) 0.6 10^3/uL (0.1-1.4); BASOPHILS % (AUTO) 0.5 % (0-2); EOSINOPHILS % (AUTO) 2.3 % (0-6); HEMATOCRIT 45.5 % (36.0-47.0); HEMOGLOBIN 15.2 g/dL (12.0-15.5); MEAN CORPUSCULAR HEMOGLOBIN 28.5 pg (27.0-33.4); MEAN CORPUSCULAR HGB CONC 33.4 g/dL (32.0-36.0); MEAN CORPUSCULAR VOLUME 85 fl (80-97); MONOCYTES % (AUTO) 6.5 % (3-13); PLATELET COUNT 216 10^3/uL (150-450); RED BLOOD COUNT 5.34 10^6/uL (3.72-5.28); RED CELL DISTRIBUTION WIDTH 15.3 % (11.5-14.0); SEGMENTED NEUTROPHILS % (AUTO) 65.7 % (42-78); TOTAL CELLS COUNTED % (AUTO) 100 %; WHITE BLOOD COUNT 9.2 10^3/uL (4.0-10.5)
--- NOTE | 2019-03-16 11:10 | RADIOLOGY REPORT (SQ) ---
EXAM DESCRIPTION: CHEST 2 VIEWS COMPLETED DATE/TIME: 03/16/2019 10:55 am REASON FOR STUDY: cp, sob COMPARISON: PA and lateral views of the chest from 08/30/2018. EXAM PARAMETERS: NUMBER OF VIEWS: two views TECHNIQUE: PA and lateral views of the chest were obtained. RADIATION DOSE: NA LIMITATIONS: none FINDINGS: LUNGS AND PLEURA: No consolidation, pleural effusion or pneumothorax. MEDIASTINUM AND HILAR STRUCTURES: No mediastinal or hilar contour abnormality. HEART AND VASCULAR STRUCTURES: The cardiac silhouette and pulmonary vasculature are within normal rose its. BONES: No acute findings. HARDWARE: None in the chest. OTHER: ACDF. IMPRESSION: No acute cardiopulmonary process. TECHNICAL DOCUMENTATION: JOB ID: [id number] [employer]- All Rights Reserved Reading location - IP/workstation name: [email or web address]
[2019-03-16 11:20] LABS: ALBUMIN 4.2 g/dL (3.5-5.0); ALKALINE PHOSPHATASE 75 U/L (38-126); ANION GAP 8 (5-19); ASPARTATE AMINO TRANSFERASE 23 U/L (14-36); BILIRUBIN,DIRECT 0.3 mg/dL (0.0-0.4); BILIRUBIN,TOTAL 0.3 mg/dL (0.2-1.3); BLOOD UREA NITROGEN 24 mg/dL (7-20); CALCIUM 10.4 mg/dL (8.4-10.2); CARBON DIOXIDE 29 mmol/L (22-30); CHLORIDE 104 mmol/L (98-107); GLUCOSE 101 mg/dL (75-110); POTASSIUM 4.8 mmol/L (3.6-5.0); TOTAL PROTEIN 7.6 g/dL (6.3-8.2)
--- NOTE | 2019-03-16 11:23 | EKG REPORT ---
SEVERITY:- NORMAL ECG - SINUS RHYTHM : Confirmed by: Shai Arthur MD 16-Mar-2019 11:22:44
[2019-03-16 11:35] LABS: NT PRO BNP 36 pg/mL (<125)
[2019-03-16 11:44] LABS: TROPONIN I < 0.012 ng/mL
--- NOTE | 2019-03-16 13:11 | ER Document Report ---
ED Respiratory Problem - General Chief Complaint: Shortness Of Breath Stated Complaint: COUGHING/SHORTNESS OF BREATH, UPPER ABDOMINAL PAIN Time Seen by Provider: 03/16/19 10:13 Mode of Arrival: Wheelchair Notes: This 50-year-old female presents to the emergency department with a complaint of cough and shortness of breath for approximately 1 month. She notes anterior chest pain and tightness between the shoulder blades associated with the cough. Apparently allergic to gabapentin, Toradol and tramadol. Patient is requesting medications for pain control. She denies fever or improvement with nebulizer treatment. TRAVEL OUTSIDE OF THE [place] IN LAST 30 DAYS: No - Related Data Allergies/Adverse Reactions: gabapentin Allergy (Verified 10/31/18 08:46) Difficulty breathing ketorolac [From Toradol] Allergy (Verified 10/31/18 08:46) rash tramadol Allergy (Verified 10/31/18 08:46) Past Medical History - General Information source: Patient - Social History Smoking Status: Unknown if Ever Smoked Family History: Reviewed & Not Pertinent Patient has suicidal ideation: No Patient has homicidal ideation: No - Past Medical History Cardiac Medical History: Reports: Hx Hypertension Renal/ Medical History: Denies: Hx Peritoneal Dialysis Musculoskeletal Medical History: Reports Hx Arthritis, Reports Hx Musculoskeletal Deformity, Reports Hx Musculoskeletal Trauma Psychiatric Medical History: Reports: Hx Anxiety, Hx Depression - anxiety Traumatic Medical History: Reports: Hx Fractures Past Surgical History: Reports: Hx Cholecystectomy, Hx Orthopedic Surgery - ankle, back and cervical surgery, Hx Tubal Ligation - Immunizations Immunizations up to date: Yes Review of Systems - Review of Systems Notes: Constitutional: Negative for fever. HENT: Negative for sore throat. Eyes: Negative for visual changes. Cardiovascular: Negative for chest pain. Respiratory: + Cough, + shortness of breath. Gastrointestinal: Negative for abdominal pain, vomiting or diarrhea. Genitourinary: Negative for dysuria. Musculoskeletal: Negative for back pain. Skin: Negative for rash. Neurological: Negative for headaches, weakness or numbness. 10 point ROS negative except as marked above and in HPI. Physical Exam - Vital signs Vitals: Temp Pulse Resp BP Pulse Ox 98.5 F 85 19 111/64 99 03/16/19 09:45 03/16/19 09:45 03/16/19 09:45 03/16/19 09:45 03/16/19 09:45 - Notes Notes: PHYSICAL EXAMINATION: Physical Exam: General: Well-nourished well-developed woman in no acute distress HEENT: NC/AT, pupils equal round and reactive to light, MM moist,nares clear, oropharynx clear Neck: supple, no adenopathy, no masses. Lungs: clear, no wheezing, no rales no rhonchi CVS: Regular rate and rhythm no murmur gallop or rub Chest: Tenderness to the anterior chest wall and periscapular regions bilaterally. Abdomen: Soft active nontender, no masses, no hepatosplenomegaly Ext: No edema clubbing or cyanosis. Neuro: Alert and responsive, moving all 4 extremities on command, cranial nerves intact. Skin: Intact no open lesions, no rash PSYCH: Normal mood, normal affect. Course - Re-evaluation Re-evalutation: 03/16/19 14:45 Patient does not have a pneumonia on chest x-ray and likely upper respiratory tract viral illness. - Vital Signs Vital signs: Temp Pulse Resp BP Pulse Ox 98.5 F 85 19 111/64 99 03/16/19 09:45 03/16/19 09:45 03/16/19 09:45 03/16/19 09:45 03/16/19 09:45 - Laboratory Result Diagrams: 03/16/19 10:41 03/16/19 10:41 Laboratory results interpreted by me: 03/16/19 03/16/19 10:41 10:41 RBC 5.34 H RDW 15.3 H BUN 24 H Creatinine 1.28 H Est GFR ( Amer) 53 L Est GFR (MDRD) Non-Af 43 L Calcium 10.4 H 03/16/19 13:09 I have reviewed laboratory data and used this information for the treatment decisions regarding the patient. - Diagnostic Test Radiology reviewed: Image reviewed, Reports reviewed - Chest x-ray: No acute infiltrate or effusions. - EKG Interpretation by Me EKG shows normal: Sinus rhythm - Normal sinus rhythm, rate of 69, no acute ST or T wave abnormalities noted. Discharge - Discharge Clinical Impression: Cough Acute bronchitis Qualifiers: Bronchitis organism: unspecified organism Qualified Code(s): J20.9 - Acute bronchitis, unspecified Condition: Good Disposition: HOME, SELF-CARE Instructions: Bronchitis ([facility]) Additional Instructions: You were seen for symptoms most consistent with bronchitis. This can take up to 10weeks to fully resolve. This is generally due to a viral infection. Please follow-up with your primary doctor in the next 2-3 days. Return if you develop worsening cough, vomiting, fever >100.4, pass out, begin coughing blood, or have any other symptoms that are concerning to you. Please use the medications prescribed today as directed.
[2019-03-16] MEDS ORDERED: HYDROXYZINE HCL INJ 50 MG/1 ML VIAL IM ONE (13:12)
[2019-03-16] MEDS ORDERED: DEXAMETHASONE SOD PHOS INJ 10 MG/1 ML VIAL IV ONE (13:14)
[2019-03-16 15:02] VITALS: BP 92/56
== END 2019-03-16 15:02 | disposition home or self-care (01) ==
LOC: ER 09:39
DX: J20.9 Acute bronchitis, unspecified (principal); R05 Cough; R06.02 Shortness of breath; R07.9 Chest pain, unspecified; M54.6 Pain in thoracic spine; Z88.8 Allergy status to other drugs, medicaments and biological substances; I10 Essential (primary) hypertension
CPT/HCPCS: 93005; 94640; 99284; 96372; 96374; 36415; 85025; 80053; 84484; 83880; 71046; 93010; J3410; J1100; J7620

== ENCOUNTER 2019-06-26 16:24 | Emergency (ER) | payer MEDICAID ==
[2019-06-26 16:29] VITALS: BP 135/85
--- NOTE | 2019-06-26 16:53 | ER Document Report ---
HPI - HPI Time Seen by Provider: 06/26/19 16:38 Pain Level: 5 Notes: 53-year-old female presents emergency room for complaints of neck pain after falling from a ladder approximately approximately 2 feet 2 days ago. She is tried [id number] Tylenol ibuprofen without any relief. Pain is 5 out of 10, throbbing, achy. Denies hitting head or change in level consciousness. Patient states that she caught herself and did not land on her neck. Has not tried any icing or heat. Denies previous issues with neck injuries. denies fevers, chills, chest pain,palpitations, shortness of breath, dyspnea, nausea, vomiting, diarrhea, abdominal pain, hematuria,blurred vision, double vision, loss of vision, speech changes, LH, dizziness, syncope, headaches, wheezing, ST, URI, weakness, bowel or bladder dysfunction, saddle anesthesia, numbness or tingling in bilateral upper or lower extremities equally, muscle paralysis, weakness in bilateral upper or lower extremities equally or rash. Denies IV drug use. - REPRODUCTIVE Reproductive: DENIES: : Past Medical History - General Information source: Patient - Social History Smoking Status: Unknown if Ever Smoked Family History: Reviewed & Not Pertinent Patient has homicidal ideation: No - Past Medical History Cardiac Medical History: Reports: Hx Hypertension Renal/ Medical History: Denies: Hx Peritoneal Dialysis Musculoskeletal Medical History: Reports Hx Arthritis, Reports Hx Musculoskeletal Deformity, Reports Hx Musculoskeletal Trauma Psychiatric Medical History: Reports: Hx Anxiety, Hx Depression - anxiety Traumatic Medical History: Reports: Hx Fractures Past Surgical History: Reports: Hx Cholecystectomy, Hx Orthopedic Surgery - ankle, back and cervical surgery, Hx Tubal Ligation - Immunizations Immunizations up to date: Yes Vertical Provider Document - CONSTITUTIONAL Agree With Documented VS: Yes Exam Limitations: No Limitations General Appearance: WD/WN Notes: PHYSICAL EXAMINATION: reviewed vital signs by RN GENERAL: Well-appearing, well-nourished and in no acute distress. HEAD: Atraumatic, normocephalic. EYES: Pupils equal round and reactive to light, extraocular movements intact, conjunctiva are normal. ENT: Nares patent, oropharynx clear without exudates. Moist mucous membranes. NECK: Normal range of motion, supple without lymphadenopathy. full APROM of cervical spine, noted right paraspinal cervical tenderness on palpation, no cervical spine tenderness on palpation. negative spurlings test. Marketing Secretary + 2 bilaterally and equally. Dtr +2 bilaterally and equally in BUE. Perrla, full eomi. Face symmetrical. No rashes observed. Point tenderness to right paraspinal muscles near C6. No lymphadenopathy. Full APROM with shoulders. TM intact bilaterally. No meningismus. No noted lymphadenopathy. LUNGS: Breath sounds clear to auscultation bilaterally and equal. No wheezes rales or rhonchi. HEART: Regular rate and rhythm without murmurs ABDOMEN: Soft, nontender, nondistended abdomen. No guarding, no rebound. No masses appreciated. Female : deferred Musculoskeletal: Normal range of motion, no pitting or edema. No cyanosis. NEUROLOGICAL: Cranial nerves grossly intact. Normal speech, normal gait. Normal sensory, motor exams PSYCH: Normal mood, normal affect. SKIN: Warm, Dry, normal turgor, no rashes or lesions noted. - INFECTION CONTROL TRAVEL OUTSIDE OF THE [place] IN LAST 30 DAYS: No Course - Re-evaluation Re-evalutation: 06/26/19 17:22 Afebrile vital stable no distress. Nurses notes reviewed. Cervical spine x-ray for any acute fracture, dislocation. Discussed with patient that she needs to apply heat 20 minutes on 20 minutes off several times a day, to use muscle relaxers and anti-inflammatories as needed. Do not drive, drink or operate machinery while taking muscle relaxers and cause sedation or impairment of cognitive function. After performing a Medical Screening Examination, I estimate there is LOW risk for CENTRAL CORD SYNDROME, EPIDURAL MASS LESION, SEVERE SPINAL STENOSIS, ARTERIAL DISSECTION, MENINGITIS, or ACUTE CORONARY SYNDROME, thus I consider the discharge disposition reasonable. I have reevaluated this patient multiple times and no significant life threatening changes are noted. The patient and I have discussed the diagnosis and risks, and we agree with discharging home to follow-up on an outpatient basis with the understanding that symptoms and presentations can change. We also discussed returning to the Emergency Department immediately if new or worsening symptoms occur. We have discussed the symptoms which are most concerning (e.g., saddle anesthesia, urinary or bowel incontinence or retention, changing or worsening pain) that necessitate immediate return. 06/26/19 17:29 - Vital Signs Vital signs: Temp Pulse Resp BP Pulse Ox 97.7 F 77 16 135/85 H 97 06/26/19 16:31 06/26/19 16:28 06/26/19 16:28 06/26/19 16:28 06/26/19 16:28 Discharge - Discharge Clinical Impression: Neck muscle spasm Condition: Stable Disposition: HOME, SELF-CARE Instructions: Muscle Relaxers ([facility]), Muscle Strain ([facility]), Myalagia (Muscle Pain) ([facility]), Neck Injury (Cervical Strain) ([facility]) Additional Instructions: You do not have evidence of a fracture on today's xrays. Your pain is likely to do soft tissue swelling and inflammation. This can last up to 6 weeks before completely resolving. You should continue to apply ice to the area regularly, keep the affected area elevated, and take ibuprofen 600mg every 6 hours as needed for pain. Please return if you have worsening pain, weakness, numbness, notice increasing redness or swelling to the area, develop a fever, or have any other symptoms that are concerning to you. Prescriptions: Methocarbamol [Robaxin 500 mg Tablet] 500 mg PO QID PRN #15 tablet PRN Reason: Acetaminophen [Tylenol] 650 mg PO Q4 PRN #20 tablet PRN Reason: Forms: Return to Work Referrals: CANDI SPRINGER MD [ACTIVE STAFF] - Follow up as needed ROBERT BRADSHAW MD [COMMUNITY BASED STAFF] - Follow up as needed
[2019-06-26] MEDS ORDERED: ACETAMINOPHEN 325 MG TABLET PO ONE (17:06)
--- NOTE | 2019-06-26 17:28 | RADIOLOGY REPORT (SQ) ---
EXAM DESCRIPTION: CERV SP 4 OR 5 VIEWS IMAGES COMPLETED DATE/TIME: 06/26/2019 4:59 pm REASON FOR STUDY: s/p fall from ladder approx 2 feet, neck pain COMPARISON: None. NUMBER OF VIEWS: Five views. TECHNIQUE: AP, lateral, obliques and odontoid radiographic images acquired of the cervical spine. LIMITATIONS: None. FINDINGS: MINERALIZATION: Normal. ALIGNMENT: Anatomic. VERTEBRAE: Vertebral bodies of normal height. DISCS: Intact instrumentation status post ACD C4 through C7. FORAMINA: No osteophytes or foraminal narrowing. LATERAL AND POSTERIOR ELEMENTS: Facets, lateral masses and spinous processes without significant find ings. HARDWARE: None in the spine. SOFT TISSUES: No masses or calcifications. Lung apices clear. OTHER: No other significant finding. IMPRESSION: No acute findings. TECHNICAL DOCUMENTATION: JOB ID: [id number] [employer]- All Rights Reserved Reading location - IP/workstation name: [email or web address]
== END 2019-06-26 17:43 | disposition left against medical advice (07) ==
LOC: ER 16:24
DX: M62.838 Other muscle spasm (principal); M54.2 Cervicalgia; W11.XXXA Fall on and from ladder, initial encounter; I10 Essential (primary) hypertension
CPT/HCPCS: 99283; 72050; J3490

== ENCOUNTER 2019-11-30 22:18 | Emergency (ER) | payer MEDICAID ==
--- NOTE | 2019-11-30 22:48 | ER Document Report ---
ED Medical Screen (RME) - General Chief Complaint: Cough Stated Complaint: FLANK PAIN/COUGH/NAUSEA Time Seen by Provider: 11/30/19 22:44 Mode of Arrival: Wheelchair Information source: Patient Notes: 54-year-old female presents to ED for cough shortness of breath with pain bilateral loss of taste and smell since she was a child with a head injury headaches fever tired states yesterday fever was 101.2 and she took Tylenol and it came down. She states she does have a history of high blood pressure depression insomnia and anxiety. She is very unsteady on her feet and states she feels extremely tired and weak. The patient was evaluated during the global Covid 19 pandemic, and that diagnosis was suspected/considered upon their initial presentation. Their evaluation, treatment and testing was consistent with current guidelines for patients who present with complaints or symptoms that may be related to Covid 19. I have greeted and performed a rapid initial assessment of this patient. A comprehensive ED assessment and evaluation of the patient, analysis of test results and completion of medical decision making process will be conducted by an additional ED providers. TRAVEL OUTSIDE OF THE [place] IN LAST 30 DAYS: No - Related Data Allergies/Adverse Reactions: gabapentin Allergy (Verified 11/30/19 22:48) Difficulty breathing ketorolac [From Toradol] Allergy (Verified 11/30/19 22:48) rash tramadol Allergy (Verified 11/30/19 22:48) Past Medical History - Past Medical History Cardiac Medical History: Reports: Hx Hypertension Renal/ Medical History: Denies: Hx Peritoneal Dialysis Musculoskeltal Medical History: Reports Hx Arthritis, Reports Hx Musculoskeletal Deformity, Reports Hx Musculoskeletal Trauma Psychiatric Medical History: Reports: Hx Anxiety, Hx Depression - anxiety Traumatic Medical History: Reports: Hx Fractures Past Surgical History: Reports: Hx Cholecystectomy, Hx Orthopedic Surgery - ank le, back and cervical surgery, Hx Tubal Ligation - Immunizations Immunizations up to date: Yes Physical Exam - Vital signs Vitals: Temp Pulse Resp BP Pulse Ox 99.1 F 101 H 26 H 132/84 H 100 11/30/19 22:26 11/30/19 22:26 11/30/19 22:26 11/30/19 22:26 11/30/19 22:26 Course - Vital Signs Vital signs: Temp Pulse Resp BP Pulse Ox 99.1 F 101 H 26 H 132/84 H 100 11/30/19 22:26 11/30/19 22:26 11/30/19 22:26 11/30/19 22:26 11/30/19 22:26
[2019-11-30 23:22] LABS: APPEARANCE,URINE SLIGHTLY-CLOUDY; BILIRUBIN,URINE NEGATIVE (NEGATIVE); COLOR,URINE STRAW; GLUCOSE, URINE NEGATIVE (NEGATIVE); KETONES,URINE NEGATIVE (NEGATIVE); LEUKOCYTE ESTERASE,URINE NEGATIVE (NEGATIVE); NITRITE,URINE NEGATIVE (NEGATIVE); PROTEIN,URINE NEGATIVE (NEGATIVE); URINE SPECIFIC GRAVITY 1.004; UROBILINOGEN,URINE NEGATIVE mg/dL (<2.0)
[2019-11-30] MEDS ORDERED: HYDROCODONE/ACETAMINOPHEN 5-325 MG TABLET PO ONE (23:24)
[2019-11-30] MEDS ORDERED: ONDANSETRON HCL INJ/PF 4 MG/2 ML SDV IV ONE (23:24)
[2019-11-30] MEDS ORDERED: NORMAL SALINE 1000 ML 1,000 ML IV ONE (23:25)
[2019-11-30] MEDS ORDERED: LEVALBUTEROL HCL NEB 1.25 MG/3 ML AMPUL NEB ONE (23:25)
[2019-11-30 23:29] LABS: ABSOLUTE EOSINOPHILS # (AUTO) 0.2 10^3/uL (0.0-0.6); ABSOLUTE LYMPHOCYTES (AUTO) 2.8 10^3/uL (0.5-4.7); ABSOLUTE MONOCYTES (AUTO) 0.9 10^3/uL (0.1-1.4); ABSOLUTE NEUT (AUTO) 8.1 10^3/uL (1.7-8.2); BASOPHILS % (AUTO) 0.4 % (0-2); EOSINOPHILS % (AUTO) 1.8 % (0-6); HEMOGLOBIN 14.8 g/dL (12.0-15.5); MEAN CORPUSCULAR HEMOGLOBIN 28.7 pg (27.0-33.4); MEAN CORPUSCULAR HGB CONC 33.7 g/dL (32.0-36.0); MEAN CORPUSCULAR VOLUME 85 fl (80-97); MONOCYTES % (AUTO) 7.7 % (3-13); PLATELET COUNT 261 10^3/uL (150-450); RED BLOOD COUNT 5.17 10^6/uL (3.72-5.28); RED CELL DISTRIBUTION WIDTH 14.2 % (11.5-14.0); SEGMENTED NEUTROPHILS % (AUTO) 67.1 % (42-78); TOTAL CELLS COUNTED % (AUTO) 100 %
--- NOTE | 2019-11-30 23:31 | ER Document Report ---
ED General - General Chief Complaint: Painful Cough Stated Complaint: FLANK PAIN/COUGH/NAUSEA Time Seen by Provider: 11/30/19 22:44 Mode of Arrival: Wheelchair TRAVEL OUTSIDE OF THE [place] IN LAST 30 DAYS: No - HPI Context: This is a 54-year-old female presenting to the emergency department for evaluation of fever, cough, shortness of breath, post tussive emesis, pleuritic chest pain and generalized weakness x5 days. Patient states she has no sense of taste or smell but this is been present since she was a child secondary to a head injury. Patient is also complaining of frontal headache. Patient states she took Tylenol for fever. Patient describes her discomfort as sharp in her chest wall when she coughs and rates it as a 4 out of 5. Patient localizes the chest wall pain to her mid rib cage bilaterally. Patient states she is "coughing all the time". Patient denies prior history of positive COVID infection, exposure to persons positive for COVID or persons under investigation for COVID 19. Patient states coughing and exertion exacerbate her symptoms and Tylenol only mildly alleviates her symptoms. Associated symptoms: Other - See HPI Exacerbated by: Other - See HPI Relieved by: Other - See HPI - Related Data Allergies/Adverse Reactions: gabapentin Allergy (Verified 11/30/19 22:48) Difficulty breathing ketorolac [From Toradol] Allergy (Verified 11/30/19 22:48) rash tramadol Allergy (Verified 11/30/19 22:48) Past Medical History - General Information source: Patient - Social History Smoking Status: Never Smoker Frequency of alcohol use: None Drug Abuse: None Lives with: Family Family History: Reviewed & Not Pertinent Patient has homicidal ideation: No - Past Medical History Cardiac Medical History: Reports: Hx Hypertension Renal/ Medical History: Denies: Hx Peritoneal Dialysis Musculoskeletal Medical History: Reports Hx Arthritis, Reports Hx Musculoskeletal Deformity, Reports Hx Musculoskeletal Trauma Psychiatric Medical History: Reports: Hx Anxiety, Hx Depression - anxiety Traumatic Medical History: Reports: Hx Fractures Past Surgical History: Reports: Hx Cholecystectomy, Hx Orthopedic Surgery - ankle, back and cervical surgery, Hx Tubal Ligation - Immunizations Immunizations up to date: Yes Review of Systems - Review of Systems Constitutional: Fever, Weakness EENT: No symptoms reported Cardiovascular: No symptoms reported Respiratory: Cough, Hurts to breathe, Short of breath Gastrointestinal: Nausea, Vomiting Genitourinary: No symptoms reported Female Genitourinary: No symptoms reported Musculoskeletal: No symptoms reported Skin: No symptoms reported Hematologic/Lymphatic: No symptoms reported Neurological/Psychological: Headaches -: Yes All other systems reviewed and negative Physical Exam - Vital signs Vitals: Temp Pulse Resp BP Pulse Ox 99.1 F 101 H 26 H 132/84 H 100 11/30/19 22:26 11/30/19 22:26 11/30/19 22:26 11/30/19 22:26 11/30/19 22:26 - Notes Notes: CONSTITUTIONAL [Vital signs reviewed, Patient appears fatigued and does not feel well, Alert and oriented X 3, Normal stature.] HEAD [Atraumatic, Normocephalic.] EYES [Eyes are normal to inspection, No discharge from eyes, Extraocular muscles intact, Sclera are normal, Conjunctiva are normal.] ENT [Ears normal to inspection, Nose examination normal, Posterior pharynx normal, Mouth normal to inspection.] NECK [Normal ROM, No jugular venous distention, No meningeal signs, no carotid bruit.] RESPIRATORY CHEST [Chest is nontender, Breath sounds significant for mild expiratory wheeze l, No respiratory distress.] CARDIOVASCULAR [Tachycardia, No murmurs, Normal S1 S2, No rub, No gallop.] ABDOMEN [Abdomen is nontender, No pulsatile masses, No other masses, Bowel sounds normal, No distension, No peritoneal signs, No hernias.] BACK [There is no CVA Tenderness, There is no tenderness to palpation, Normal inspection.] UPPER EXTREMITY [Inspection normal, No cyanosis, No clubbing, No edema, 2+ radial pulses.] LOWER EXTREMITY [Inspection normal, No cyanosis, No clubbing, No edema, No calf tenderness, 2+ femoral pulses.] NEURO [No focal motor deficits, No focal sensory deficits, Speech normal.] SKIN [Skin is warm, Skin is dry, Skin is normal color.] PSYCHIATRIC [Normal affect. ] Course - Re-evaluation Re-evalutation: 12/01/19 00:24 Patient states she feels slightly better after IV fluids and [place]. Results of ED MSE discussed with patient. All questions were answered prior to discharge. Emergency signs and symptoms, reasons to return to the emergency department discussed with patient. Precautions for persons under investigation for COVID discussed with patient. - Vital Signs Vital signs: Temp Pulse Resp BP Pulse Ox 99.1 F 101 H 16 101/83 100 11/30/19 22:26 11/30/19 22:26 12/01/19 00:01 12/01/19 00:01 12/01/19 00:01 - Laboratory Result Diagrams: 11/30/19 23:02 11/30/19 23:02 Laboratory results interpreted by me: 11/30/19 11/30/19 23:02 23:02 WBC 12.0 H RDW 14.2 H Glucose 146 H - Diagnostic Test Radiology reviewed: Reports reviewed Discharge - Discharge Clinical Impression: Person under investigation for COVID-19 Condition: Stable Disposition: HOME, SELF-CARE Instructions: COVID-19 Guidance for Persons Under Investigation Additional Instructions: Return to the Emergency Department without delay by calling 911 if any worse. HOME CARE INSTRUCTIONS & INFORMATION: Thank you for choosing us for your medical needs. We hope you're satisfied with the care you received. After you leave, you must properly care for your problem and, at the same time, observe its progress. Any condition can change. Some illnesses can change rapidly over hours or days. If your condition worsens, return to the Emergency Department or see your physician promptly. ABOUT YOUR X-RAYS AND EKG'S: If you had an EKG or X-rays taken, they have been read by the Emergency Physician. The X-rays and EKG's will also be read by a Radiologist or Pop Singer within 24 hours. If discrepancies are noted, you will be notified by telephone. Please be certain the ED has a correct telephone number & address where you can be reached. Also, realize that some fractures or abnormalities do not show up on initial X-rays. If your symptoms continue, see your physician. ABOUT YOUR LABORATORY TEST: If you had laboratory tests, the results have been reviewed by the Emergency Physician. Some test results (for example cultures) may not be available for several days. You will be contacted if any test result shows you need additional treatment. Please be certain the ED has a correct telephone number and address where you can be reached. ABOUT YOUR MEDICATIONS: You will receive instructions on how to take your medicine on the prescription label you receive. Additional information may be provided by the Pharmacy. If you have questions afterwards, call the ED for cla rification or further instructions. Some prescribed medications may cause drowsiness. Do not perform tasks such as driving a car or operating machinery without consulting your Pharmacist. If you feel you need a refill of pain medication, your condition will need re-evaluation. Please do not call for a refill of any medication. ABOUT YOUR SIGNATURE: Signature of this document acknowledges to followin. Understanding that you received emergency treatment and that you may be released before al medical problems are known or treated. Please be certain the ED has a correct phone number & address where you can be reached. 2. Acknowledgement that you will arrange for follow-up care as recommended. 3. Authorization for the Emergency Physician to provide information to your follow-up Physician in order to maximize your care. AT ANY TIME, IF YOUR SYMPTOMS CHANGE SIGNIFICANTLY OR WORSEN OR YOU DEVELOP NEW SYMPTOMS, RETURN TO THE EMERGENCY DEPARTMENT IMMEDIATELY FOR RE-EVALUATION. OUR GOAL IS TO PROVIDE EXCELLENT MEDICAL CARE! WE HOPE THAT WE HAVE MET YOUR EXPECTATIONS DURING YOUR EMERGENCY DEPARTMENT VISIT AND THAT YOU FEEL YOU HAVE RECEIVED EXCELLENT CARE! Referrals: LEANDRA JACKSON MD [HONORARY] - Follow up as needed
[2019-11-30 23:37] LABS: ALBUMIN 3.6 g/dL (3.5-5.0); ALKALINE PHOSPHATASE 63 U/L (38-126); ANION GAP 11 (5-19); ASPARTATE AMINO TRANSFERASE 19 U/L (14-36); BILIRUBIN,DIRECT 0.3 mg/dL (0.0-0.4); BILIRUBIN,TOTAL 0.4 mg/dL (0.2-1.3); BLOOD UREA NITROGEN 18 mg/dL (7-20); CALCIUM 9.1 mg/dL (8.4-10.2); CARBON DIOXIDE 23 mmol/L (22-30); CHLORIDE 105 mmol/L (98-107); GLUCOSE 146 mg/dL (75-110); POTASSIUM 4.1 mmol/L (3.6-5.0); TOTAL PROTEIN 6.4 g/dL (6.3-8.2)
[2019-11-30 23:59] LABS: A TYPE INFLUENZA AG NEGATIVE (NEGATIVE); B INFLUENZA AG NEGATIVE (NEGATIVE)
--- NOTE | 2019-11-30 23:59 | RADIOLOGY REPORT (SQ) ---
CLINICAL INDICATION: cough PUI. TECHNIQUE: A single portable AP view was obtained of the chest at 2314 hours. COMPARISON: March 16, 2019. FINDINGS: The cardiomediastinal silhouette is normal. The lungs are grossly clear. No evidence of effusion or pneumothorax. The visualized bones are unremarkable. IMPRESSION: No evidence of active intrathoracic disease.
[2019-12-01] MEDS ORDERED: DEXAMETHASONE SOD PHOS INJ 10 MG/1 ML VIAL IV ONE (00:13)
[2019-12-01] MEDS ORDERED: HYDROCODONE/ACETAMINOPHEN 5-325 MG (6 TAB/ER DISP) PO PRN (00:14)
[2019-12-01] MEDS ORDERED: ONDANSETRON ODT 4 MG TAB (6 TAB/ER DISP) PO PRN (00:26)
[2019-12-01 00:32] VITALS: BP 123/86
== END 2019-12-01 00:35 | disposition home or self-care (01) ==
LOC: ER 22:18
DX: R05 Cough (principal); R10.9 Unspecified abdominal pain; R11.0 Nausea; R53.1 Weakness; I10 Essential (primary) hypertension; Z20.828 Contact with and (suspected) exposure to other viral communicable diseases; Z90.49 Acquired absence of other specified parts of digestive tract; Z98.51 Tubal ligation status
CPT/HCPCS: 94640; 99284; 96361; 96374; 96375; 36415; 87070; 87880; 85025; 87635; 87077; 80053; 81001; 87804; 71045; J2405; J7030; J1100; J3490; C9803; J7614